=== PATIENT | female | born 1990 | race Caucasian/White ===

== ENCOUNTER 2016-05-05 13:05 | Emergency (ER) | payer MEDICAID, OTHER ==
[~2016-05-05] VITALS: Ht 160 cm; Wt 109.0 kg
[~2016-05-05 13:05] MED LIST: AGM875T PO; AMOX1TAB11 PO; BIRTH CONTROL PO; BREA1EAC5 MC; DCS100C PO; HYDR-3720 PO; HYDR1TAB8 OP; IBP800T PO; LNZ600T PO; PREN1TAB71 PO; PROM25TA14 PO; RNT150T PO; TRAM50TA2 PO
--- NOTE | 2016-05-05 14:10 | ED General ---
General Chief Complaint: Chest Wall/Rib Pain Stated Complaint: RUNNY NOSE/COUGH/SORE THROAT Nursing Triage Note: PT STATES SHE HAS BEEN COUGHING A LOT AND HAS UPPER CHEST PAIN FROM COUGHING, HAS HAD CHILLS ON OCCATION, PRODUCTIVE COUGH, FOR ABOUT 2 WEEKS. Nursing Sepsis Screen: No Definite Risk Source of Information: Patient Exam Limitations: No Limitations History of Present Illness Time Seen by Provider: 14:08 Initial Comments 25-year-old female patient presents to the emergency department complaints of 2 weeks onset of cough, chills, clear sputum. Denies improvement. Denies contacting her family practitioner for the symptoms. Timing/Duration: Getting Worse, Other (2 wks) Modifying Factors: worse with Other (worse with coughing) Allergies and Home Medications Allergies Coded Allergies: No Known Drug Allergies (Unverified , 12/28/09) Home Medications Albuterol Sulfate 6.7 Gm Hfa.aer.ad #1 2 PUFF IH Q4H PRN PRN SHORTNESS OF BREATH Prescribed by: COLE GRANT on 05/05/16 1436 Doxycycline Hyclate 100 Mg Capsule #14 100 MG PO BID Prescribed by: COLE GRANT on 05/05/16 1436 Prednisone 20 Mg Tab #10 40 MG PO DAILY Prescribed by: COLE GRANT on 05/05/16 1436 Constitutional: chillsNo dizziness, No fever, malaise EENTM: ear pain nose congestion throat pain Respiratory: see HPI Cardiovascular: no symptoms reported Gastrointestinal: no symptoms reported Genitourinary: no symptoms reported Musculoskeletal: no symptoms reported Skin: no symptoms reported Psychiatric/Neurological: No Symptoms Reported All Other Systems Reviewed Negative Unless Noted: Yes (Negative excepted noted.) Past Qizbrtq-Ivanol-Gzvruy Hx Patient Social History Alcohol Use: Rarely Uses Recreational Drug Use: No Smoking Status: Current Everyday Smoker Type Used: Cigarettes Former Smoker/When Quit: Jan 31, 2013 Recent Foreign Travel: No Contact w/Someone Who Travel: No Recent Infectious Disease Expo: No Recent Hopitalizations: No Physical Abuse Screen: No Sexual Abuse: No Immunizations Up To Date Tetanus Booster (TDap): Less than 5yrs Date of Influenza Vaccine: Mar 19, 2014 Surgeries HX Surgeries: Yes (BILAT KNEE ) Surgeries: Bladder Surgery, Section, Orthopedic Respiratory Hx Respiratory Disorders: No Cardiovascular Hx Cardiac Disorders: No Neurological Hx Neurological Disorders: No Reproductive System : No (HAS NOT HAS A PERIOD SINCE ) Hx Reproductive Disorders: No Female Reproductive Disorders: Denies Genitourinary Hx Genitourinary Disorders: No Gastrointestinal Hx Gastrointestinal Disorders: No Musculoskeletal Hx Musculoskeletal Disorders: No Endocrine Hx Endocrine Disorders: No HEENT HX ENT Disorders: No Cancer Hx Cancer: No Psychosocial Hx Psychiatric Problems: No Integumentary HX Skin/Integumentary Disorder: No Blood Transfusions Hx Blood Disorders: No Adverse Reaction to a Blood Tr: No Reviewed Nursing Assessment Reviewed/Agree w Nursing PMH: Yes Family Medical History Significant Family History: No Pertinent Family Hx Family Medial History: Family history: Cardiovascular disease MATERNAL GRANDMOTHER Family history: Hypertension MATERNAL GRANDMOTHER Infertile Tuberculosis 03 MOTHER Physical Exam Vital Signs Vital Sign - Last 12Hours 05/05/16 13:23 Temp 97.1 Pulse 90 Resp 20 B/P 119/73 Pulse Ox 97 O2 Delivery Room Air Capillary Refill : Less Than 3 Seconds General Appearance: No Apparent Distress WD/WN HEENT: PERRL/EOMI TMs Normal Pharyngeal Erythema Neck: Full Range of Motion Normal Inspection Non Tender Supple Respiratory: No Accessory Muscle Use No Respiratory Distress Wheezing (left faint expiratory wheezing. Coarse breath sounds bilaterally.) Cardiovascular: Regular Rate, Rhythm No Murmur Gastrointestinal: Non Tender SoftNo Distended Back: Normal Inspection Extremity: Normal Capillary Refill Neurologic/Psychiatric: Alert Oriented x3 Normal Mood/Affect Skin: Normal Color Warm/Dry Progress/Results/Core Measures Results/Orders My Orders Orders-COLE GRANT Chest Pa/Lat (2 View) (05/05/16 13:53) Vital Signs/I&O Vital Sign - Last 12Hours 05/05/16 05/05/16 13:23 13:33 Temp 97.1 Pulse 90 Resp 20 B/P 119/73 Pulse Ox 97 O2 Delivery Room Air Room Air Blood Pressure Mean: 88 Diagnostic Imaging Diagonstic Imaging: Xray Plain Films/CT/US/NM/MRI: chest Comments Indication: Cough and dyspnea. Discussion: Two views of the chest were obtained , comparison 09/04/2015. Patchy opacities are noted within the left mid lung, concerning for pneumonia. Normal heart size. No pleural fluid or pneumothorax. No acute osseous abnormality. Impression: 1. Patchy opacities within the left mid lung, concerning for pneumonia. Dictated on workstation # [id number] Reviewed: Reviewed by Me (radiology report reviewed by me) Departure Communication Progress Notes Diagnostic findings discussed with the patient. Proceed with discharge to home with doxycycline, albuterol, and prednisone. Impression Impression: Primary Impression: Pneumonia Qualified Code: J18.9 - Pneumonia, unspecified organism Disposition: HOME, SELF-CARE Condition: Improved Departure-Patient Inst. Decision time for Depature: 14:35 Referrals: NO,LOCAL PHYSICIAN (PCP/Family) Primary Care Physician Patient Instructions: Community-Acquired Pneumonia, Adult (DC) Add. Discharge Instructions: All discharge instructions reviewed with patient and/or family. Voiced understanding. Medications as instructed. Tylenol and ibuprofen over-the- counter for pain or fever. Cool Humidifier. Whkt-opu-dyjlpaa cough suppressants, and histamines, and/or decongestants if needed. Return to the emergency department for worsened symptoms or any other concerns. Follow-up with your family practitioner for recheck as an outpatient and repeat chest x- ray in the next 3-5 days. Scripts Albuterol Sulfate (Proventil Hfa)6.7 Gm Hfa.aer.ad2 Puff IH Q4H PRN SHORTNESS OF BREATH #1 EA Ref 0 Prov:COLE GRANT 05/05/16 Prednisone 20 Mg Tab40 Mg PO DAILY #10 TAB Ref 0 Prov:COLE GRANT 05/05/16 Doxycycline Hyclate 100 Mg [id number] Mg PO BID #14 CAP Ref 0 Prov:COLE GRANT 05/05/16 Work/School Note: Local [employer] COLE GRANT May 05, 2016 14:10
--- NOTE | 2016-05-05 14:18 | Diagnostic Imaging Report ---
Indication: Cough and dyspnea. Discussion: Two views of the chest were obtained, comparison 09/04/2015. Patchy opacities are noted within the left mid lung, concerning for pneumonia. Normal heart size. No pleural fluid or pneumothorax. No acute osseous abnormality. Impression: 1. Patchy opacities within the left mid lung, concerning for pneumonia. Dictated by: Dictated on workstation # [id number]
[2016-05-05] MEDS ORDERED: RT-ALBUINH IH (14:36)
[2016-05-05] MEDS ORDERED: DOXY100C2 PO (14:36)
[2016-05-05] MEDS ORDERED: PRD20T PO (14:36)
[2016-05-05 14:50] VITALS: BP 119/73
== END 2016-05-05 14:49 | disposition home or self-care (01) ==
LOC: EDUNIT# 13:05 → ER 13:07
DX: J18.9 Pneumonia, unspecified organism (principal); F17.210 Nicotine dependence, cigarettes, uncomplicated
CPT/HCPCS: 71020

== ENCOUNTER 2020-06-21 07:36 | Emergency (ER) | payer MEDICAID ==
[~2020-06-21] VITALS: Ht 160 cm; Wt 113.0 kg
[~2020-06-21 07:36] MED LIST changes: +DOXY100C2 PO; +PRD20T PO; +RT-ALBUINH IH
--- NOTE | 2020-06-21 07:55 | ED Abdominal Pain ---
General Chief Complaint: Substance Abuse Stated Complaint: ETOH INTOX Nursing Triage Note: ARRIVED VIA AMB BY EMS FROM HOME. STATES SHE HAS X4 MIXED YURY AND COKES AND X1 BEER LAST NIGHT. HAS BEEN VOMITING AND FEELING LIKE SHE WAS GOING TO PASS OUT. Sepsis Screen: No Definite Risk Source of Information: Patient, EMS Exam Limitations: No Limitations History of Present Illness Date Seen by Provider: Jun 21, 2020 Time Seen by Provider: 07:40 Initial Comments Patient is a 30-year-old female who presents to the emergency department today with a chief complaint of abdominal discomfort, nausea vomiting and a little diarrhea. Patient states that she went out to the bar last night and had 4 mixed drinks and a beer. Patient states that she was drinking "Yury and Coke". She states that she started vomiting last night and she has vomited too many times to count. Patient denies any black or bloody emesis. Patient denies any bloody stool or black stool. Patient states that she has felt like she is going to pass out secondary to the nausea and vomiting. Patient denies any urinary complaints. Patient states that she has not taken anything for the nausea and vomiting. Patient states that she drinks alcohol maybe twice a month. Patient states she has not been able to hold anything down throughout the night. She states her last menstrual period was about 2 months ago when she has a history of polycystic ovarian syndrome. She also states that she is being worked up for diabetes through [facility]. She is not on any medications for diabetes however. Patient denies any recent fevers, chills, productive cough or other complaints of illness. All other review of systems reviewed and negative except as stated above. Timing/Duration: 4-6 Hours Severity/Quality: Severe Location: Epigastric Radiation: No Radiation Activities at Onset: None Associated Symptoms: Nausea/Vomiting Allergies and Home Medications Allergies Coded Allergies: No Known Drug Allergies (Unverified , 12/28/09) Patient Home Medication List Home Medication List Reviewed: Yes Review of Systems Review of Systems Constitutional: see HPI EENTM: No Symptoms Reported Respiratory: No Symptoms Reported Cardiovascular: No Symptoms Reported Gastrointestinal: Abdominal Pain, Diarrhea, Nausea, Vomiting Genitourinary: No Symptoms Reported Musculoskeletal: no symptoms reported Skin: no symptoms reported Psychiatric/Neurological: No Symptoms Reported All Other Systems Reviewed Negative Unless Noted: Yes Past Lbpwzok-Avdkkt-Vlxlxu Hx Patient Social History Alcohol Use: Occasionally Uses Number of Drinks Today: AA Alcohol Beverage of Choice: Beer, Whiskey Type Used: Cigarettes Recent Infectious Disease Expo: No Recent Hopitalizations: No Immunizations Up To Date Tetanus Booster (TDap): Less than 5yrs Date of Influenza Vaccine: Mar 19, 2014 Past Medical History Surgeries: Yes (BILAT KNEE ) Bladder Surgery, Section, Orthopedic Respiratory: No Cardiac: No Neurological: No Reproductive Disorders: No Female Reproductive Disorders: Denies Gastrointestinal: No Musculoskeletal: No Endocrine: No Cancer: No Psychosocial: No Integumentary: No Blood Disorders: No Adverse Reaction/Blood Tranf: No Family Medical History Family history: Cardiovascular disease MATERNAL GRANDMOTHER Family history: Hypertension MATERNAL GRANDMOTHER Infertile Tuberculosis 03 MOTHER No Pertinent Family Hx Physical Exam Vital Signs Vital Signs - First Documented 06/21/20 07:36 Temp 35.1 Pulse 103 Resp 16 B/P (MAP) 136/78 (97) Pulse Ox 94 O2 Delivery Room Air Capillary Refill : Less Than 3 Seconds Height/Weight/BMI Height: 5'3" Weight: 240lbs. 5.0oz. 109.739162qo; 44.00 BMI Method:Stated General Appearance: WD/WN, moderate distress (Actively vomiting on arrival to the emergency department) HEENT: PERRL/EOMI Neck: full range of motion Respiratory: lungs clear, normal breath sounds, no respiratory distress, no accessory muscle use Cardiovascular: regular rate, rhythm Gastrointestinal: soft, guarding (Epigastric discomfort on palpation with voluntary guarding), tenderness (Tender to palpation in the right upper quadrant and epigastrium) Extremities: non-tender, normal inspection, no pedal edema, no calf tenderness, normal capillary refill Neurologic/Psychiatric: alert, normal mood/affect, oriented x 3 Skin: normal color, warm/dry Progress/Results/Core Measures Results/Orders Lab Results Laboratory Tests Test 06/21/20 07:58 Range/Units White Blood Count 8.2 4.3-11.0 10^3/uL Red Blood Count 4.61 3.80-5.11 10^6/uL Hemoglobin 13.1 11.5-16.0 g/dL Hematocrit 39 35-52 % Mean Corpuscular Volume 86 80-99 fL Mean Corpuscular Hemoglobin 28 25-34 pg Mean Corpuscular Hemoglobin Concent 33 32-36 g/dL Red Cell Distribution Width 13.4 10.0-14.5 % Platelet Count 235 130-400 10^3/uL Mean Platelet Volume 11.8 9.0-12.2 fL Immature Granulocyte % (Auto) 0 % Neutrophils (%) (Auto) 57 42-75 % Lymphocytes (%) (Auto) 34 12-44 % Monocytes (%) (Auto) 7 0-12 % Eosinophils (%) (Auto) 1 0-10 % Basophils (%) (Auto) 1 0-10 % Neutrophils # (Auto) 4.7 1.8-7.8 10^3/uL Lymphocytes # (Auto) 2.8 1.0-4.0 10^3/uL Monocytes # (Auto) 0.6 0.0-1.0 10^3/uL Eosinophils # (Auto) 0.1 0.0-0.3 10^3/uL Basophils # (Auto) 0.1 0.0-0.1 10^3/uL Immature Granulocyte # (Auto) 0.0 0.0-0.1 10^3/uL Sodium Level 141 135-145 MMOL/L Potassium Level 3.5 L 3.6-5.0 MMOL/L Chloride Level 105 98-107 MMOL/L Carbon Dioxide Level 23 21-32 MMOL/L Anion Gap 13 5-14 MMOL/L Blood Urea Nitrogen 11 7-18 MG/DL Creatinine 0.80 0.60-1.30 MG/DL Estimat Glomerular Filtration Rate > 60 BUN/Creatinine Ratio 14 Glucose Level 135 H 70-105 MG/DL Calcium Level 8.9 8.5-10.1 MG/DL Corrected Calcium 8.6 8.5-10.1 MG/DL Total Bilirubin 0.6 0.1-1.0 MG/DL Aspartate Amino Transf (AST/SGOT) 17 5-34 U/L Alanine Aminotransferase (ALT/SGPT) 32 0-55 U/L Alkaline Phosphatase 66 40-136 U/L Total Protein 7.6 6.4-8.2 GM/DL Albumin 4.4 3.2-4.5 GM/DL Lipase 20 8-78 U/L Serum Test, Qualitative NEGATIVE NEGATIVE My Orders Orders - RENE CASTELLANO MD Ed Iv/Invasive Line Start (06/21/20 07:49) Cbc With Automated Diff (06/21/20 07:49) Comprehensive Metabolic Panel (06/21/20 07:49) Lipase (06/21/20 07:49) Hcg,Qualitative Serum (06/21/20 07:49) Ns Iv 1000 Ml (Sodium Chloride 0.9%) (06/21/20 08:00) Promethazine Injection (Phenergan Injec (06/21/20 08:00) Diphenhydramine Injection (Benadryl Inje (06/21/20 09:15) Medications Given in ED Current Medications Medications Dose Ordered Sig/Osei Route Start Time Stop Time Status Last Admin Dose Admin Diphenhydramine HCl 25 mg ONCE ONCE IVP 06/21/20 09:15 06/21/20 09:16 DC 06/21/20 09:07 25 MG Promethazine HCl 25 mg ONCE ONCE IVP 06/21/20 08:00 06/21/20 08:01 DC 06/21/20 08:03 25 MG Vital Signs/I&O 06/21/20 07:36 Temp 35.1 Pulse 103 Resp 16 B/P (MAP) 136/78 (97) Pulse Ox 94 O2 Delivery Room Air Blood Pressure Mean: 97 Progress Progress Note : Time: 07:55 Progress Note 30-year-old female presents to the emergency department with a chief complaint of nausea and vomiting after a night of drinking alcoholic beverages last night. Evaluation today includes a physical examination, CBC, Chem-12, lipase and serum test. Patient is treated in the emergency department with a liter of IV fluids and 25 mg of Zofran. Patient disposition to be determined after laboratory studies have been evaluated. 0842 Patient reevaluated. She has had approximately half liter of fluids with Phenergan. She is not feeling much better just yet. Labs have been reviewed and are all within normal limits except for her blood sugar which is mildly elevated at 135. Patient has no clinical or objective findings to warrant further investigation here in the emergency department. Her exam is benign. Her vital signs are stable. Will reevaluate patient after her fluids are com plete. 0942 Reevaluated patient. She is feeling better. No further vomiting. The Benadryl seems to have augmented the Phenergan and alleviated her symptoms. Patient is counseled on drinking less alcoholic beverages. She verbalizes understanding. She is comfortable with discharge to home. We will send her home with a prescription for some Phenergan. All questions were sought and answered. Patient is stable for discharge Departure Impression Primary Impression: Alcoholic gastritis Qualified Codes: K29.20 - Alcoholic gastritis without bleeding Disposition: HOME, SELF-CARE Condition: Stable Departure-Patient Inst. Decision time for Depature: 09:43 Referrals: NO,LOCAL PHYSICIAN (PCP/Family) Primary Care Physician Patient Instructions: Gastritis (DC), Nausea and Vomiting, Adult Add. Discharge Instructions: Drink plenty of fluids to stay well-hydrated. Follow a clear liquid diet today until your stomach is calm down and you can tolerate food. I have given you a prescription for some Phenergan you can take 1 every 6 hours as needed for nausea and vomiting. Return to the emergency room for any worsening symptoms, especially associated with fever, abdominal pain or any other emergent concerns Scripts Promethazine HCl (Promethazine Tablet) 25 Mg Tablet 25 MG PO Q6H PRN for NAUSEA/VOMITING, #15 TAB Prov: RENE CASTELLANO MD 06/21/20 RENE CASTELLANO MD Jun 21, 2020 07:55
[2020-06-21] MEDS ORDERED: NS IV 1000 ML 1,000 ML IV SCH (08:00)
[2020-06-21] MEDS ORDERED: PROMETHAZINE INJ 25 MG/ML (PHENERGAN) AMP IVP ONE (08:00)
[2020-06-21 08:08] LABS: BASOPHILS # (AUTO) 0.1 10^3/uL (0.0-0.1); BASOPHILS % (AUTO) 1 % (0-10); EOSINOPHILS # (AUTO) 0.1 10^3/uL (0.0-0.3); EOSINOPHILS % (AUTO) 1 % (0-10); HEMATOCRIT 39 % (35-52); HEMOGLOBIN 13.1 g/dL (11.5-16.0); LYMPHOCYTES # (AUTO) 2.8 10^3/uL (1.0-4.0); LYMPHOCYTES % (AUTO) 34 % (12-44); MEAN CORPUSCULAR HEMOGLOBIN 28 pg (25-34); MEAN CORPUSCULAR HGB CONC 33 g/dL (32-36); MEAN CORPUSCULAR VOLUME 86 fL (80-99); MEAN PLATELET VOLUME 11.8 fL (9.0-12.2); MONOCYTES # (AUTO) 0.6 10^3/uL (0.0-1.0); MONOCYTES % (AUTO) 7 % (0-12); NEUTROPHILS # (AUTO) 4.7 10^3/uL (1.8-7.8); NEUTROPHILS % (AUTO) 57 % (42-75); PLATELET COUNT 235 10^3/uL (130-400); WHITE BLOOD COUNT 8.2 10^3/uL (4.3-11.0)
[2020-06-21 08:20] LABS: ALBUMIN 4.4 GM/DL (3.2-4.5); CHLORIDE 105 MMOL/L (98-107); POTASSIUM 3.5 MMOL/L (3.6-5.0); SODIUM 141 MMOL/L (135-145)
[2020-06-21 08:22] LABS: CALCIUM 8.9 MG/DL (8.5-10.1)
[2020-06-21 08:23] LABS: GLUCOSE 135 MG/DL (70-105); TOTAL PROTEIN 7.6 GM/DL (6.4-8.2)
[2020-06-21 08:24] LABS: CARBON DIOXIDE 23 MMOL/L (21-32)
[2020-06-21 08:25] LABS: BILIRUBIN,TOTAL 0.6 MG/DL (0.1-1.0)
[2020-06-21 08:26] LABS: ALKALINE PHOSPHATASE 66 U/L (40-136); GFR ESTIMATED > 60
[2020-06-21 08:27] LABS: BUN/CREATININE RATIO 14
[2020-06-21 08:29] LABS: ALANINE AMINOTRANSFERASE 32 U/L (0-55)
[2020-06-21 08:30] LABS: LIPASE 20 U/L (8-78)
[2020-06-21] MEDS ORDERED: diphenhydrAMINE 50 MG/ML INJ (BENADRYL) IVP ONE (09:15)
[2020-06-21] MEDS ORDERED: PROM25TA14 PO (09:44)
[2020-06-21 09:53] VITALS: BP 103/57
== END 2020-06-21 09:53 | disposition home or self-care (01) ==
LOC: EDUNIT# 07:36 → ER 07:38
DX: K29.20 Alcoholic gastritis without bleeding (principal); Z82.49 Family history of ischemic heart disease and other diseases of the circulatory system
CPT/HCPCS: 36415; 80053; 83690; 84703; 85025

== ENCOUNTER 2021-10-12 12:49 | Emergency (ER) | payer MEDICAID ==
[~2021-10-12] VITALS: Ht 160 cm; Wt 118.3 kg
[~2021-10-12 12:49] MED LIST changes: -DOXY100C2 PO; +DOXY100C5 PO
--- NOTE | 2021-10-12 13:09 | ED Fall/Injury ---
General Chief Complaint: Substance Abuse Stated Complaint: [place],VOMITING,DEHYDRATED,FALL BILAT KNEE PAIN Source: patient Exam Limitations: no limitations History of Present Illness Date Seen by Provider: Oct 12, 2021 Time Seen by Provider: 13:06 Initial Comments This is a 31-year-old female who presents to the emergency room for evaluation of nausea, vomiting and left knee pain. She states that she went out drinking last night and she fell onto a stair and injured her left knee. Her tetanus is not up-to-date. She also states that since last night she has had increased nausea and vomiting and has thrown up at least 4 times this morning. She states that she does not normally drink. Her overall pain is currently a dull 6 out of 10. Loss of Consciousness: no loss of consciousness Allergies and Home Medications Allergies Coded Allergies: No Known Drug Allergies (Unverified , 12/28/09) Patient Home Medication List Home Medication List Reviewed: Yes Promethazine HCl (Promethazine Tablet) 25 Mg Tablet, 25 MG PO Q6H PRN for NAUSEA/VOMITING Prescribed by: RENE CASTELLANO on 06/21/20 0944 Review of Systems Review of Systems Constitutional: no symptoms reported Eyes: No Symptoms Reported Ears, Nose, Mouth, Throat: no symptoms reported Respiratory: no symptoms reported Cardiovascular: no symptoms reported Gastrointestinal: nausea, vomiting Genitourinary: no symptoms reported : No Musculoskeletal: other (Left knee abrasion and pain) Skin: other (Abrasions) Psychiatric/Neurological: No Symptoms Reported Past Dxhabjb-Coraqf-Btizyx Hx Patient Social History Tobacco Use?: Yes Tobacco type used: Cigarettes Immunizations Up To Date Tetanus Booster (TDap): Less than 5yrs Past Medical History Surgeries: Yes (BILAT KNEE ) Bladder Surgery, Section, Orthopedic Respiratory: No Cardiac: No Neurological: No Reproductive Disorders: No Female Reproductive Disorders: Polycystic Ovarian Dis Gastrointestinal: No Musculoskeletal: No Endocrine: Yes (DR IS WATCHING HER BLOOD SUGARS) Cancer: No Psychosocial: No Integumentary: No Blood Disorders: No Adverse Reaction/Blood Tranf: No Family Medical History Family history: Cardiovascular disease MATERNAL GRANDMOTHER Family history: Hypertension MATERNAL GRANDMOTHER Infertile Tuberculosis 03 MOTHER No Pertinent Family Hx Physical Exam Vital Signs Vital Signs - First Documented 10/12/21 13:05 Temp 36.8 Pulse 71 Resp 18 B/P (MAP) 117/67 (84) Pulse Ox 99 O2 Delivery Room Air Capillary Refill : Height, Weight, BMI Height: 5'3" Weight: 240lbs. 5.0oz. 109.762968dq; 44.00 BMI Method:Stated General Appearance: WD/WN, no apparent distress HEENT: PERRL/EOMI, normal ENT inspection, pharynx normal Neck: non-tender, full range of motion, supple Cardiovascular: tachycardia Respiratory: chest non-tender, lungs clear, normal breath sounds Gastrointestinal: normal bowel sounds, non tender Back: normal inspection Extremities: other (Superficial abrasions to the knees bilaterally) Neurologic/Psychiatric: top executive II-XII nml as tested Skin: normal color Lymphatic: no adenopathy Progress/Results/Core Measures Results/Orders My Orders Orders - DEREK REESE Tetanus/Diphtheria Inj (Adult) (Tenivac (10/12/21 13:15) Ondansetron Injection (Zofran Injectio (10/12/21 13:15) Ns Iv 1000 Ml (Sodium Chloride 0.9%) (10/12/21 13:15) Knee, Left, 3 Views (10/12/21 13:04) Iv/Invasive Line Insertion .IV start (10/12/21 13:29) Medications Given in ED Current Medications Medications Dose Ordered Sig/Osei Route Start Time Stop Time Status Last Admin Dose Admin Ondansetron HCl 4 mg ONCE ONCE IVP 10/12/21 13:15 10/12/21 13:19 DC 10/12/21 13:26 4 MG Sodium Chloride 1,000 ml @ 0 mls/hr Q0M ONCE IV 10/12/21 13:15 10/12/21 13:19 DC 10/12/21 13:25 999 MLS/HR Tetanus/ Diphtheria Toxoids 0.5 ml ONCE ONCE IM 10/12/21 13:15 10/12/21 13:19 DC 10/12/21 13:26 0.5 ML Vital Signs/I&O 10/12/21 13:05 Temp 36.8 Pulse 71 Resp 18 B/P (MAP) 117/67 (84) Pulse Ox 99 O2 Delivery Room Air Departure Impression Primary Impression: Nausea and vomiting Additional Impressions: Right ankle sprain Abrasions of multiple sites Left knee sprain Disposition: 01 HOME, SELF-CARE Condition: Improved Departure-Patient Inst. Decision time for Depature: 13:58 Referrals: MARYAM CHRISTINA MD (PCP/Family) Primary Care Physician Patient Instructions: ALCOHOL AND SUBSTANCE ABUSE, Skin Abrasions, Sprain (DC) Add. Discharge Instructions: Please abstain from alcohol use. Use soap and water to keep your wounds clean. Follow-up closely with your primary care doctor All discharge instructions reviewed with patient and/or family. Voiced understanding. Scripts Ondansetron (Ondansetron Odt) 4 Mg Tab.rapdis 4 MG PO TID PRN for NAUSEA/VOMITING-1ST LINE for 3 Days, #14 TAB Prov: DEREK REESE 10/12/21 DEREK REESE Oct 12, 2021 13:08
[2021-10-12] MEDS ORDERED: TETANUS & DIPHTHERIA TOX,ADULT 0.5 ML (TENIVAC) IM ONE (13:15)
[2021-10-12] MEDS ORDERED: ONDANSETRON 4 MG/2 ML (SDV) Z0FRAN IVP ONE (13:15)
[2021-10-12] MEDS ORDERED: NS IV 1000 ML 1,000 ML IV ONE (13:15)
--- NOTE | 2021-10-12 13:49 | Diagnostic Imaging Report ---
EXAMINATION: Left knee radiographs, 3 views. COMPARISON: Knee radiographs September 04, 2015. HISTORY: 31-year-old female, fall. Left knee pain. FINDINGS: There is a well-corticated ossification adjacent to the anterior aspect of the proximal tibia consistent with long-standing chronic etiology. This may reflect sequela of remote prior injury. There is no identified acute fracture. There is no knee joint effusion. The joint spaces are well-preserved. IMPRESSION: No identified acute bony abnormality of the left knee. Dictated by: Dictated on workstation # [id number]
[2021-10-12] MEDS ORDERED: ONDA4TAB11 PO (13:59)
[2021-10-12 14:22] VITALS: BP 115/60
== END 2021-10-12 14:23 | disposition home or self-care (01) ==
LOC: EDUNIT# 12:49 → ER 12:51
DX: S93.402A Sprain of unspecified ligament of left ankle, initial encounter (principal); S83.92XA Sprain of unspecified site of left knee, initial encounter; R11.2 Nausea with vomiting, unspecified; F17.210 Nicotine dependence, cigarettes, uncomplicated; Z23 Encounter for immunization; W10.9XXA Fall (on) (from) unspecified stairs and steps, initial encounter
CPT/HCPCS: 73562; 90714

== ENCOUNTER 2022-03-01 11:54 | Emergency (ER) | payer MEDICAID ==
[~2022-03-01] VITALS: Ht 160 cm; Wt 117.9 kg
[~2022-03-01 11:54] MED LIST changes: +ONDA4TAB11 PO
--- NOTE | 2022-03-01 12:23 | ED General ---
General Chief Complaint: Allergic Reaction Stated Complaint: FACIAL SWELLING/HIVES Source of Information: Patient Exam Limitations: No Limitations History of Present Illness Date Seen by Provider: Mar 01, 2022 Time Seen by Provider: 12:15 Initial Comments Patient is a 31-year-old female who presents to the emergency department with co radhaerns for possible allergic reaction that began yesterday and worsened today. Patient states she was recently put on a course of steroids due to some existing right ulnar tunnel issues. She states shortly after the steroids were completed the symptoms began. She states she has been having lip swelling, facial swelling, mild subjective difficulty breathing, and an itchy rash on her bilateral upper extremities. She states she took some Benadryl yesterday but is taken nothing today. She states she had some nausea and vomiting on Wednesday but has had none since. She denies any known allergies. She denies any history of similar symptoms. Allergies and Home Medications Allergies Coded Allergies: No Known Drug Allergies (Unverified , 12/28/09) Patient Home Medication List Home Medication List Reviewed: Yes Epinephrine (Epipen 2-Vipul) 0.3 Mg/0.3 Ml Auto.injct, 0.3 MG IJ NEEDED Prescribed by: Regan Whitman on 03/01/22 1458 Levocetirizine Dihydrochloride (Xyzal) 5 Mg Tablet, 5 MG PO BID Prescribed by: Regan Whitman on 03/01/22 1457 Ondansetron (Ondansetron Odt) 4 Mg Tab.rapdis, 4 MG PO TID PRN for NAUSEA/VOMITING-1ST LINE Prescribed by: MEHNAZ GALLOWAY on 10/12/21 1359 Promethazine HCl (Promethazine Tablet) 25 Mg Tablet, 25 MG PO Q6H PRN for NAUSEA/VOMITING Prescribed by: RENE CASTELLANO on 06/21/20 0944 Review of Systems Review of Systems Constitutional: see HPI EENTM: see HPI Respiratory: see HPI Cardiovascular: no symptoms reported Gastrointestinal: see HPI Genitourinary: no symptoms reported Musculoskeletal: no symptoms reported Skin: see HPI Psychiatric/Neurological: No Symptoms Reported Past Tiajnsl-Gyuqry-Zuqwsc Hx Immunizations Up To Date Tetanus Booster (TDap): Less than 5yrs Past Medical History Surgeries: Yes (BILAT KNEE ) Bladder Surgery, Section, Orthopedic Respiratory: No Cardiac: No Neurological: No Reproductive Disorders: No Female Reproductive Disorders: Polycystic Ovarian Dis Gastrointestinal: No Musculoskeletal: No Endocrine: Yes (DR IS WATCHING HER BLOOD SUGARS) Cancer: No Psychosocial: No Integumentary: No Blood Disorders: No Adverse Reaction/Blood Tranf: No Family Medical History Family history: Cardiovascular disease MATERNAL GRANDMOTHER Family history: Hypertension MATERNAL GRANDMOTHER Infertile Tuberculosis 03 MOTHER No Pertinent Family Hx Physical Exam Vital Signs Vital Signs - First Documented 03/01/22 12:16 Temp 36.9 Pulse 90 Resp 20 B/P (MAP) 161/95 (117) Pulse Ox 98 O2 Delivery Room Air Capillary Refill : Height, Weight, BMI Height: 5'3" Weight: 240lbs. 5.0oz. [id number]; 46.00 BMI Method:Stated General Appearance: No Apparent Distress, WD/WN HEENT: PERRL/EOMI, TMs Normal, Normal ENT Inspection, Pharynx Normal Neck: Full Range of Motion, Normal Inspection, Non Tender, Supple Respiratory: Chest Non Tender, Lungs Clear, Normal Breath Sounds, No Accessory Muscle Use, No Respiratory Distress Cardiovascular: Regular Rate, Rhythm Back: Normal Inspection, No Vertebral Tenderness Extremity: Normal Capillary Refill, Normal Inspection, Normal Range of Motion Neurologic/Psychiatric: Alert, Oriented x3, No Motor/Sensory Deficits, Normal Mood/Affect Skin: Warm/Dry Comments Urticarial rash noted to the bilateral upper extremities; moderate swelling noted to the lips and bilateral periorbital tissues without erythema Progress/Results/Core Measures Suspected Sepsis SIRS Temperature: Pulse: Respiratory Rate: Laboratory Tests 03/01/22 12:35: White Blood Count 16.6H Blood Pressure / Mean: Laboratory Tests 03/01/22 12:35: Creatinine 0.89, Platelet Count 280, Total Bilirubin 0.8 Results/Orders Lab Results Laboratory Tests Test 03/01/22 12:35 03/01/22 13:09 Range/Units White Blood Count 16.6 H 4.3-11.0 10^3/uL Red Blood Count 5.12 H 3.80-5.11 10^6/uL Hemoglobin 14.6 11.5-16.0 g/dL Hematocrit 43 35-52 % Mean Corpuscular Volume 84 80-99 fL Mean Corpuscular Hemoglobin 29 25-34 pg Mean Corpuscular Hemoglobin Concent 34 32-36 g/dL Red Cell Distribution Width 12.6 10.0-14.5 % Platelet Count 280 130-400 10^3/uL Mean Platelet Volume 11.3 9.0-12.2 fL Immature Granulocyte % (Auto) 0 % Neutrophils (%) (Auto) 72 42-75 % Lymphocytes (%) (Auto) 21 12-44 % Monocytes (%) (Auto) 6 0-12 % Eosinophils (%) (Auto) 1 0-10 % Basophils (%) (Auto) 0 0-10 % Neutrophils # (Auto) 12.0 H 1.8-7.8 10^3/uL Lymphocytes # (Auto) 3.5 1.0-4.0 10^3/uL Monocytes # (Auto) 0.9 0.0-1.0 10^3/uL Eosinophils # (Auto) 0.1 0.0-0.3 10^3/uL Basophils # (Auto) 0.1 0.0-0.1 10^3/uL Immature Granulocyte # (Auto) 0.1 0.0-0.1 10^3/uL Neutrophils % (Manual) 70 % Lymphocytes % (Manual) 24 % Monocytes % (Manual) 4 % Eosinophils % (Manual) 2 % Basophils % (Manual) 0 % Band Neutrophils 0 % Blood Morphology Comment NORMAL Sodium Level 137 135-145 MMOL/L Potassium Level 3.6 3.6-5.0 MMOL/L Chloride Level 105 98-107 MMOL/L Carbon Dioxide Level 19 L 21-32 MMOL/L Anion Gap 13 5-14 MMOL/L Blood Urea Nitrogen 15 7-18 MG/DL Creatinine 0.89 0.60-1.30 MG/DL Estimat Glomerular Filtration Rate 90 BUN/Creatinine Ratio 17 Glucose Level 123 H 70-105 MG/DL Calcium Level 9.3 8.5-10.1 MG/DL Corrected Calcium 9.0 8.5-10.1 MG/DL Total Bilirubin 0.8 0.1-1.0 MG/DL Aspartate Amino Transf (AST/SGOT) 19 5-34 U/L Alanine Aminotransferase (ALT/SGPT) 30 0-55 U/L Alkaline Phosphatase 56 40-136 U/L Total Protein 7.6 6.4-8.2 GM/DL Albumin 4.4 3.2-4.5 GM/DL Urine Test NEGATIVE NEGATIVE My Orders Orders - WHITMAN,REGAN QUALITY MANAGER Epinephrine 1 Mg Injection (Adrenalin I (03/01/22 12:30) Diphenhydramine Injection (Benadryl Inje (03/01/22 12:30) Famotidine Injection (Pepcid Injection) (03/01/22 12:30) Dexamethasone Injection (Decadron Injec (03/01/22 12:30) Iv/Invasive Line Insertion .IV INSERT (03/01/22 12:20) Cbc With Automated Diff (03/01/22 12:20) Comprehensive Metabolic Panel (03/01/22 12:20) Hcg,Qualitative Urine (03/01/22 12:24) Dexamethasone Injection (Decadron Injec (03/01/22 12:35) Dexamethasone Injection (Decadron Injec (03/01/22 12:39) Manual Differential (03/01/22 12:35) Medications Given in ED Current Medications Medications Dose Ordered Sig/Osei Route Start Time Stop Time Status Last Admin Dose Admin Dexamethasone Sodium Phosphate 8 mg ONCE ONCE IV 03/01/22 12:30 03/01/22 12:31 DC 03/01/22 12:40 8 MG Diphenhydramine HCl 25 mg ONCE ONCE IVP 03/01/22 12:30 03/01/22 12:31 DC 03/01/22 12:37 25 MG Epinephrine HCl 0.3 mg ONCE ONCE IM 03/01/22 12:30 03/01/22 12:31 DC 03/01/22 13:04 0.3 MG Famotidine 20 mg ONCE ONCE IVP 03/01/22 12:30 03/01/22 12:31 DC 03/01/22 12:37 20 MG Vital Signs/I&O 03/01/22 03/01/22 12:16 13:04 Temp 36.9 Pulse 90 79 Resp 20 B/P (MAP) 161/95 (117) 121/76 Pulse Ox 98 O2 Delivery Room Air Capillary Refill : Progress Note : Progress Note Patient is nontoxic and well-hydrated on exam. Vital signs are reassuring. Patient is not hypoxic or tachypneic on exam. No adventitious lung sounds or increased work of breathing noted. There is no stridor appreciated on exam. No drooling, trismus, or decreased range of motion of the neck. Patient does have an urticarial rash on her bilateral upper extremities. She does have some facial swelling around her lips and bilateral eyes. This is concerning for potential delayed anaphylaxis. Thus patient was given IM epinephrine as well as IV doses of Benadryl, Pepcid, and Decadron. Patient had significant improvement in the symptoms after the medications were given. Patient was educated that she needed to stay in the emergency department for observation for 3 hours after the administration of the epinephrine. She states she wants to go home and does not want to stay that long. I stated that we are unable to be 100% sure that her symptoms would not rebound once the epinephrine wears off unless we are able to observe her for the above-stated time. She persisted in her desire to go home. She was able to tolerate food and liquid oral intake without issue. Patient will be discharged home with the acknowledgment of the risk that the symptoms could rebound once the epinephrine is completely metabolized. She will be discharged home with a prescription for Xyzal and EpiPen. Instructions for indications for EpiPen use were discussed. Discussed importance of close follow-up with PCP. Return precautions for urgent symptomology discussed. Patient verbalized understanding. Departure Impression Primary Impression: Allergic reaction Qualified Codes: T78.40XA - Allergy, unspecified, initial encounter Disposition: HOME, SELF-CARE Condition: Improved Departure-Patient Inst. Decision time for Depature: 14:55 Referrals: MARYAM CHRISTINA MD (PCP/Family) Primary Care Physician Patient Instructions: Allergic Reaction ED Scripts Epinephrine (Epipen 2-Vipul) 0.3 Mg/0.3 Ml Auto.injct 0.3 MG IJ NEEDED, #2 ML Prov: REGAN WHITMAN APRN 03/01/22 Levocetirizine Dihydrochloride (Xyzal) 5 Mg Tablet 5 MG PO BID for 7 Days, #14 TAB 0 Refills Prov: REGAN WHITMAN APRN 03/01/22 REGAN WHITMAN APRN Mar 01, 2022 12:23
[2022-03-01] MEDS ORDERED: EPINEPHrine INJECTION 1 MG/ML AMP IM ONE (12:30)
[2022-03-01] MEDS ORDERED: diphenhydrAMINE 50 MG/ML INJ (BENADRYL) IVP ONE (12:30)
[2022-03-01] MEDS ORDERED: FAMOTIDINE 20MG/2ML IV (PEPCID) IVP ONE (12:30)
[2022-03-01 12:47] LABS: BASOPHILS # (AUTO) 0.1 10^3/uL (0.0-0.1); BASOPHILS % (AUTO) 0 % (0-10); EOSINOPHILS # (AUTO) 0.1 10^3/uL (0.0-0.3); EOSINOPHILS % (AUTO) 1 % (0-10); HEMATOCRIT 43 % (35-52); HEMOGLOBIN 14.6 g/dL (11.5-16.0); LYMPHOCYTES # (AUTO) 3.5 10^3/uL (1.0-4.0); LYMPHOCYTES % (AUTO) 21 % (12-44); MEAN CORPUSCULAR HEMOGLOBIN 29 pg (25-34); MEAN CORPUSCULAR HGB CONC 34 g/dL (32-36); MEAN CORPUSCULAR VOLUME 84 fL (80-99); MEAN PLATELET VOLUME 11.3 fL (9.0-12.2); MONOCYTES # (AUTO) 0.9 10^3/uL (0.0-1.0); MONOCYTES % (AUTO) 6 % (0-12); NEUTROPHILS % (AUTO) 72 % (42-75); PLATELET COUNT 280 10^3/uL (130-400); WHITE BLOOD COUNT 16.6 10^3/uL (4.3-11.0)
[2022-03-01 13:04] LABS: ALBUMIN 4.4 GM/DL (3.2-4.5)
[2022-03-01 13:05] LABS: POTASSIUM 3.6 MMOL/L (3.6-5.0)
[2022-03-01 13:06] LABS: CALCIUM 9.3 MG/DL (8.5-10.1)
[2022-03-01 13:07] LABS: TOTAL PROTEIN 7.6 GM/DL (6.4-8.2)
[2022-03-01 13:09] LABS: BILIRUBIN,TOTAL 0.8 MG/DL (0.1-1.0)
[2022-03-01 13:11] LABS: CREATININE SERUM 0.89 MG/DL (0.60-1.30)
[2022-03-01 13:26] LABS: BAND NEUTROPHILS 0 %; BASOPHILS % (MANUAL) 0 %; EOSINOPHILS % (MANUAL) 2 %; LYMPHOCYTES % (MANUAL) 24 %; MONOCYTES % (MANUAL) 4 %; NEUTROPHILS % (MANUAL) 70 %; RBC MORPH NORMAL
[2022-03-01] MEDS ORDERED: LEVO5TAB28 PO (14:57)
[2022-03-01] MEDS ORDERED: EPIN0.3P3 IJ (14:58)
[2022-03-01 15:16] VITALS: BP 136/83
[2022-03-02] MEDS ORDERED: EPIN0.3P3 IJ (08:35)
[2022-03-02] MEDS ORDERED: LEVO5TAB28 PO (08:35)
== END 2022-03-01 15:10 | disposition home or self-care (01) ==
LOC: EDUNIT# 11:54 → ER 11:56
DX: L50.0 Allergic urticaria (principal); Z28.310 Unvaccinated for COVID-19
CPT/HCPCS: 36415; 80053; 84703; 85007; 85027

== ENCOUNTER 2022-03-02 15:25 | Emergency (ER) | payer MEDICAID ==
[~2022-03-02] VITALS: Ht 160 cm; Wt 112.0 kg
[~2022-03-02 15:25] MED LIST changes: +EPIN0.3P3 IJ; +LEVO5TAB28 PO
[2022-03-02] MEDS ORDERED: LORATADINE (CLARITIN) 10 MG TAB PO ONE (15:45)
[2022-03-02] MEDS ORDERED: FAMOTIDINE 20 MG (PEPCID) TABLET PO ONE (15:45)
--- NOTE | 2022-03-02 15:52 | ED General ---
General Chief Complaint: Allergic Reaction Stated Complaint: SOA/HIVES Nursing Triage Note: PT STATES SHE HAD AN ALLERGIC RXN TO A [facility], FINISHED THE RX LAST WEDNESDAY AND STARTED GETTING SICK 3 DAYS AFTER, STATES THERE IS NOTHING ELSE IT COULD BE, STATES SOB, 98% ON ROOM AIR AT TRIAGE, STATES PAIN FROM HER THROAT TO HER UPPER CHEST WHEN BREATHING, SKIN IS RED AND FLUSHED, STATES IT HAS BEEN LIKE THIS ALL DAY, WAS SEEN HERE YESTERDAY FOR THE SAME (DAQUAN SHIN APRN) History of Present Illness Date Seen by Provider: Mar 02, 2022 Time Seen by Provider: 15:40 Initial Comments Patient is a 31-year-old female who presents to the emergency department for evaluation of possible allergic reaction. Patient states the allergic reaction is related to a steroid she took that finished last Wednesday. She states that symptoms began approximately 3 days after. Patient was seen at this emergency department yesterday where she was noted to have some facial swelling as well as bilateral upper extremity urticaria. Patient was also complaining of some mild shortness of air. Due to multisymptom organ involvement, a dose of IM epinephrine was given. Patient has also given antihistamine and steroid treatment. Patient was monitored for approximately 2 hours thereafter with some resolution of symptoms. Patient was requesting to leave at that time and she was thus discharged. Patient states that she has had persistent rash to her chest that is red and itches. Patient also endorses some mild shortness of breath. She has not had any nausea/vomiting. She has not had any wheezing per her report. She has been able to eat and drink normally. Patient was sent home yesterday with a prescription for Xyzal and EpiPen's. There was an issue with insurance being able to fill these. She states she took a single dose of Benadryl today but has had no other medications. Patient has not made an appointment for follow-up with her PCP. (DAQUAN SHIN APRN) Allergies and Home Medications Allergies Coded Allergies: No Known Drug Allergies (Unverified , 12/28/09) Patient Home Medication List Home Medication List Reviewed: Yes (DAQUAN SHIN APRN) Epinephrine (Epipen 2-Vipul) 0.3 Mg/0.3 Ml Auto.injct, 0.3 MG IJ NEEDED Prescribed by: LEONILA CASTILLO on 03/02/22 0835 Levocetirizine Dihydrochloride (Xyzal) 5 Mg Tablet, 5 MG PO BID Prescribed by: LEONILA CASTILLO on 03/02/22 0835 Ondansetron (Ondansetron Odt) 4 Mg Tab.rapdis, 4 MG PO TID PRN for NAUSEA/VOMITING-1ST LINE Prescribed by: MEHNAZ GALLOWAY on 10/12/21 1359 Promethazine HCl (Promethazine Tablet) 25 Mg Tablet, 25 MG PO Q6H PRN for NAUSEA/VOMITING Prescribed by: RENE CASTELLANO on 06/21/20 0944 Review of Systems Review of Systems Constitutional: no symptoms reported EENTM: no symptoms reported Respiratory: see HPI Cardiovascular: no symptoms reported Gastrointestinal: no symptoms reported Genitourinary: no symptoms reported Skin: see HPI (DAQUAN SHIN APRN) Past Aowpdep-Icggds-Twodsl Hx Patient Social History Tobacco Use?: Yes Smoking Status: Former Smoker Use of E-Cig and/or Vaping dev: Yes E-Cig or Vaping type used: CBD Substance use?: No Alcohol Use?: No (DAQUAN SHIN APRN) Immunizations Up To Date Tetanus Booster (TDap): Less than 5yrs Second COVID19 Vaccination Torito: YES COVID19 Vaccine 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: [employer] (DAQUAN SHIN APRN) Past Medical History Surgery/Hospitalization HX: BI LAT KNEE SCOPE, C SECTION, RT 5TH DIGIT PINNED FROM TRAUMA (NOT IN FINGER NOW) Surgeries: Yes (BILAT KNEE ) Bladder Surgery, Section, Orthopedic Respiratory: No Cardiac: No Neurological: No Reproductive Disorders: No Female Reproductive Disorders: Polycystic Ovarian Dis Gastrointestinal: No Musculoskeletal: No Endocrine: Yes ( IS WATCHING HER BLOOD SUGARS) Cancer: No Psychosocial: No Integumentary: No Blood Disorders: No Adverse Reaction/Blood Tranf: No (DAQUAN SHIN APRN) Family Medical History Family history: Cardiovascular disease MATERNAL GRANDMOTHER Family history: Hypertension MATERNAL GRANDMOTHER Infertile Tuberculosis 03 MOTHER No Pertinent Family Hx (DAQUAN SHIN APRN) Physical Exam Vital Signs Vital Signs - First Documented 03/02/22 03/02/22 15:29 16:02 Temp 37.0 Pulse 81 Resp 20 B/P (MAP) 134/66 (88) Pulse Ox 98 O2 Delivery Room Air (LEONILA COBURN MD) Vital Signs Capillary Refill : (DAQUAN SHIN APRN) Height, Weight, BMI Height: 5'3" Weight: 240lbs. 5.0oz. 109.270574vq; 43.00 BMI Method:Stated General Appearance: No Apparent Distress, WD/WN HEENT: PERRL/EOMI, TMs Normal, Normal ENT Inspection, Pharynx Normal Neck: Full Range of Motion, Normal Inspection, Non Tender, Supple Respiratory: Chest Non Tender, Lungs Clear, Normal Breath Sounds, No Accessory Muscle Use, No Respiratory Distress Cardiovascular: Regular Rate, Rhythm Gastrointestinal: Normal Bowel Sounds Back: Normal Inspection, No Vertebral Tenderness Extremity: Normal Capillary Refill, Normal Inspection, Normal Range of Motion, Non Tender, No Calf Tenderness Neurologic/Psychiatric: Alert, Oriented x3, No Motor/Sensory Deficits, Normal Mood/Affect Skin: Normal Color, Warm/Dry Lymphatic: No Adenopathy Comments raised red urticarial rash noted to the upper chest; lungs clear to auscultation with no wheezing; no increased WOB noted on exam (DAQUAN SHIN APRN) Progress/Results/Core Measures Suspected Sepsis SIRS Temperature: Pulse: 81 Respiratory Rate: Blood Pressure 134 /66 Mean: 88 (DAQUAN SHIN APRN) Results/Orders Medications Given in ED Current Medications Medications Dose Ordered Sig/Osei Route Start Time Stop Time Status Last Admin Dose Admin Famotidine 20 mg ONCE ONCE PO 03/02/22 15:45 03/02/22 15:47 DC 03/02/22 15:59 20 MG Loratadine 10 mg ONCE ONCE PO 03/02/22 15:45 03/02/22 15:47 DC 03/02/22 15:59 10 MG (LEONILA COBURN MD) Vital Signs/I&O 03/02/22 03/02/22 15:29 16:02 Temp 37.0 37.0 Pulse 81 67 Resp 20 B/P (MAP) 134/66 (88) 114/57 Pulse Ox 98 98 O2 Delivery Room Air Room Air (LEONILA COBURN MD) Vital Signs/I&O Capillary Refill : (DAQUAN SHIN APRN) Blood Pressure Mean: 88 Progress Note : Progress Note Patient is nontoxic and well-hydrated on exam. She does have some mild raised red urticarial rash to her upper chest. No adventitious lung sounds or increased work of breathing noted on exam. Vital signs are reassuring. Patient is not hypoxic. No wheezing or stridor noted. Patient's facial swelling is much improved from yesterday. No oropharyngeal swelling noted on exam. Patient was given a dose of loratadine and Pepcid while in the emergency department. She will be discharged home with recommendations to continue dosing of the same. She was strongly encouraged to follow-up with PCP to see if she were to need any other formal allergy testing if the symptoms persist or recur. Discussed symptomology that would be concerning for anaphylaxis. Return precautions for urgent symptomology discussed. Patient verbalized understanding. (DAQUAN SHIN APRN) Departure Impression Primary Impression: Urticarial rash Disposition: 01 HOME, SELF-CARE Condition: Stable Departure-Patient Inst. Referrals: MARYAM CHRISTINA MD (PCP/Family) Primary Care Physician Patient Instructions: Ramirez (DC) Add. Discharge Instructions: You may take over the counter cetirizine (Zyrtec) and famotidine (Pepcid) for the symptoms. It may take multiple days of taking the medications for the symptoms to improve. You may take 10 mg of the cetirizine (Zyrtec) up to twice daily. You may take 20 mg of the famotidine (Pepcid) twice daily. This will hopefully help with the itchy rash and any other symptoms you may have. It is important you follow-up with your regular doctor for further evaluation and reassessment. All discharge instructions reviewed with patient and/or family. Voiced und erstanding. ATTENDING PHYSICIAN NOTE: I was physically present as attending physician in the emergency department during the care of this patient, but I was not directly involved in the decision making or delivery of care for this patient. (LEONILA COBURN MD) DAQUAN SHIN APRN Mar 02, 2022 15:52 LEONILA COBURN MD Mar 02, 2022 19:26
[2022-03-02 16:02] VITALS: BP 114/57
== END 2022-03-02 16:02 | disposition home or self-care (01) ==
LOC: EDUNIT# 15:25 → ER 15:28
DX: L50.9 Urticaria, unspecified (principal); Z87.891 Personal history of nicotine dependence
CPT/HCPCS: 99285

== ENCOUNTER 2022-03-02 23:24 | Emergency (ER) | payer MEDICAID ==
--- NOTE | 2022-03-02 23:49 | ED General ---
General Chief Complaint: General Problems/Pain Stated Complaint: LIP SWELLING,CP Source of Information: Patient Exam Limitations: No Limitations History of Present Illness Date Seen by Provider: Mar 02, 2022 Time Seen by Provider: 23:30 Initial Comments 31-year-old female presents emerged department today from home with lip swelling. She also has some burning in her chest. She has been seen here earlier in the day today at 4 PM last night for allergic reaction. Unclear source however she did start diclofenac and methylprednisolone prior to onset of her symptoms. On her first visit she was given a dose of IM epi due to multisystem involvement. Second visit to the ER she did not Benadryl, cetirizine. She states she has not taken any Benadryl since she was seen here at 4:00. Her rash has resolved. The burning in her chest has persisted. She also has some mild lower lip swelling but states her swelling has improved. She denies any shortness of breath. No abdominal pain nausea or vomiting. Allergies and Home Medications Allergies Coded Allergies: No Known Drug Allergies (Unverified , 12/28/09) Patient Home Medication List Home Medication List Reviewed: Yes Epinephrine (Epipen 2-Vipul) 0.3 Mg/0.3 Ml Auto.injct, 0.3 MG IJ NEEDED Prescribed by: LEONILA CASTILLO on 03/02/22 0835 Levocetirizine Dihydrochloride (Xyzal) 5 Mg Tablet, 5 MG PO BID Prescribed by: LEONILA CASTILLO on 03/02/22 0835 Ondansetron (Ondansetron Odt) 4 Mg Tab.rapdis, 4 MG PO TID PRN for NAUSEA/VOMITING-1ST LINE Prescribed by: MEHNAZ GALLOWAY on 10/12/21 1359 Promethazine HCl (Promethazine Tablet) 25 Mg Tablet, 25 MG PO Q6H PRN for NAUSEA/VOMITING Prescribed by: RENE CASTELLANO on 06/21/20 0944 Review of Systems Review of Systems Constitutional: see HPI EENTM: see HPI Respiratory: see HPI Cardiovascular: see HPI Gastrointestinal: see HPI Genitourinary: see HPI Musculoskeletal: see HPI Skin: see HPI Psychiatric/Neurological: See HPI Hematologic/Lymphatic: See HPI Immunological/Allergic: see HPI Past Oxvqdhu-Hogltl-Nluzmp Hx Immunizations Up To Date Tetanus Booster (TDap): Less than 5yrs First/Initial COVID19 Vaccinat: YES Second COVID19 Vaccination Torito: YES Third COVID19 Vaccination Date: YES Past Medical History Surgery/Hospitalization HX: BI LAT KNEE SCOPE, C SECTION, RT 5TH DIGIT PINNED FROM TRAUMA (NOT IN FINGER NOW) Surgeries: Yes (BILAT KNEE ) Bladder Surgery, Section, Orthopedic Respiratory: No Cardiac: No Neurological: No Reproductive Disorders: No Female Reproductive Disorders: Polycystic Ovarian Dis Gastrointestinal: No Musculoskeletal: No Endocrine: Yes ( IS WATCHING HER BLOOD SUGARS) Cancer: No Psychosocial: No Integumentary: No Blood Disorders: No Adverse Reaction/Blood Tranf: No Family Medical History Family history: Cardiovascular disease MATERNAL GRANDMOTHER Family history: Hypertension MATERNAL GRANDMOTHER Infertile Tuberculosis 03 MOTHER No Pertinent Family Hx Physical Exam Vital Signs Capillary Refill : NONE Height, Weight, BMI Height: 5'3" Weight: 240lbs. 5.0oz. 109.320140lg; 43.00 BMI Method:Stated General Appearance: No Apparent Distress, WD/WN HEENT: PERRL/EOMI, TMs Normal, Normal ENT Inspection, Pharynx Normal, Other (Very mild swelling of left lower lip. Tongue is normal. Uvula is midline with no pharyngeal edema) Neck: Full Range of Motion, Normal Inspection, Non Tender, Supple Respiratory: Chest Non Tender, Lungs Clear, Normal Breath Sounds, No Accessory Muscle Use, No Respiratory Distress Cardiovascular: Regular Rate, Rhythm, No Edema, No Gallop, No JVD, No Murmur, Normal Peripheral Pulses Gastrointestinal: Normal Bowel Sounds, No Organomegaly, No Pulsatile Mass, Non Tender, Soft Extremity: Normal Capillary Refill, Normal Inspection, Normal Range of Motion, Non Tender, No Calf Tenderness Neurologic/Psychiatric: Alert, Oriented x3, Normal Mood/Affect Skin: Normal Color, Warm/Dry Lymphatic: No Adenopathy Progress/Results/Core Measures Suspected Sepsis SIRS Temperature: Pulse: Respiratory Rate: Blood Pressure / Mean: Results/Orders My Orders Orders - BRUCEANA DO Diphenhydramine Injection (Benadryl Inje (03/03/22 00:00) Vital Signs/I&O Capillary Refill : NONE Departure Communication (Admissions) Patient is hemodynamically stable. She has mild lower lip swelling. No wheezing. No tachycardia. No nausea or vomiting. She does have some exertional chest burning, unclear etiology at this point. No indication of cardiac etiology she has had this on both previous occasions when she was here. Her rash is cleared up. There is no evidence for airway obstruction or involvement. She is discharged home with supportive care for close follow-up. Recommend she get her EpiPen's and use Benadryl every 6 hours. She states understanding. Impression Primary Impression: Allergic reaction Qualified Codes: T78.40XA - Allergy, unspecified, initial encounter Additional Impressions: Urticarial rash Lip swelling Disposition: 01 HOME, SELF-CARE Condition: Stable Departure-Patient Inst. Referrals: PEACE SUERO DO (PCP) Primary Care Physician [facility] [place] Patient Instructions: Allergic Reaction ED Add. Discharge Instructions: Continue to use 50 mg of Benadryl every 6 hours for the next couple of days. Call to schedule an appoint with the [facility] at your earliest convenience. Turn to the emergency department for any difficulty breathing. All discharge instructions reviewed with patient and/or family. Voiced understanding. ANA BARRERA DO Mar 02, 2022 23:49
[2022-03-02 23:55] VITALS: BP 143/92
[2022-03-03] MEDS ORDERED: diphenhydrAMINE 50 MG/ML INJ (BENADRYL) IM ONE
== END 2022-03-02 23:56 | disposition home or self-care (01) ==
LOC: EDUNIT# 23:24 → ER 23:27
DX: L50.0 Allergic urticaria (principal); R07.9 Chest pain, unspecified
CPT/HCPCS: 99284

== ENCOUNTER 2022-05-12 23:05 | Emergency (ER) | payer MEDICAID ==
--- NOTE | 2022-05-12 23:19 | ED General ---
General Stated Complaint: ETOH History of Present Illness Date Seen by Provider: May 12, 2022 Time Seen by Provider: 23:18 Initial Comments 30-year-old female with PMH of DM2/psych disorder, is here with complaints of nausea and vomiting after she drank 9 beers and 1 fireball today. Patient stated that her last meal was today morning. Patient does not smoke and states that she only drinks once in a while while, and states that she does not have an alcohol problem. Denies drug intake, fever, abdominal pain, diarrhea, headache, dizziness, slurred speech. Patient is able to speak in clear sentences and answer all questions, and she is oriented x3. Patient with retching and vomiting in the ER. Allergies and Home Medications Allergies Coded Allergies: No Known Drug Allergies (Unverified , 12/28/09) Patient Home Medication List Home Medication List Reviewed: Yes Epinephrine (Epipen 2-Vipul) 0.3 Mg/0.3 Ml Auto.injct, 0.3 MG IJ NEEDED Prescribed by: LEONILA CASTILLO on 03/02/22 0835 Levocetirizine Dihydrochloride (Xyzal) 5 Mg Tablet, 5 MG PO BID Prescribed by: LEONILA CASTILLO on 03/02/22 0835 Ondansetron (Ondansetron Odt) 4 Mg Tab.rapdis, 4 MG PO TID PRN for NAUSEA/VOMITING-1ST LINE Prescribed by: MEHNAZ GALLOWAY on 10/12/21 1359 Promethazine HCl (Promethazine Tablet) 25 Mg Tablet, 25 MG PO Q6H PRN for NAUSEA/VOMITING Prescribed by: RENE CASTELLANO on 06/21/20 0944 Review of Systems Review of Systems Constitutional: no symptoms reported EENTM: no symptoms reported Respiratory: no symptoms reported Gastrointestinal: nausea, vomiting Genitourinary: no symptoms reported Musculoskeletal: no symptoms reported Skin: no symptoms reported Psychiatric/Neurological: No Symptoms Reported Hematologic/Lymphatic: No Symptoms Reported Immunological/Allergic: no symptoms reported Past Cfbrdev-Rajtzx-Krjzlw Hx Immunizations Up To Date Tetanus Booster (TDap): Less than 5yrs First/Initial COVID19 Vaccinat: YES Second COVID19 Vaccination Torito: YES Third COVID19 Vaccination Date: YES Past Medical History Surgery/Hospitalization HX: BI LAT KNEE SCOPE, C SECTION, RT 5TH DIGIT PINNED FROM TRAUMA (NOT IN FINGER NOW) Surgeries: Yes (BILAT KNEE ) Bladder Surgery, Section, Orthopedic Respiratory: No Cardiac: No Neurological: No Reproductive Disorders: No Female Reproductive Disorders: Polycystic Ovarian Dis Gastrointestinal: No Musculoskeletal: No Endocrine: Yes ( IS WATCHING HER BLOOD SUGARS) Cancer: No Psychosocial: No Integumentary: No Blood Disorders: No Adverse Reaction/Blood Tranf: No Family Medical History Family history: Cardiovascular disease MATERNAL GRANDMOTHER Family history: Hypertension MATERNAL GRANDMOTHER Infertile Tuberculosis 03 MOTHER No Pertinent Family Hx Physical Exam Vital Signs Vital Signs - First Documented 05/12/22 23:19 Temp 36.8 Pulse 96 Resp 20 B/P (MAP) 130/95 (107) Pulse Ox 20 O2 Delivery Room Air Capillary Refill : Height, Weight, BMI Height: 5'3" Weight: 240lbs. 5.0oz. 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 Norm as Tested Skin: Normal Color Lymphatic: No Adenopathy Progress/Results/Core Measures Suspected Sepsis SIRS Temperature: Pulse: Respiratory Rate: Blood Pressure / Mean: Results/Orders Lab Results Laboratory Tests Test 05/12/22 23:26 Range/Units Glucometer 118 H 70-110 MG/DL My Orders Orders - JOHN BRISCOE MD Accucheck Achs ACHS (05/12/22 23:25) Ondansetron Oral Dissolve Tab (Zofran (05/12/22 23:30) Prochlorperazine Injection (Compazine In (05/13/22 00:15) Medications Given in ED Current Medications Medications Dose Ordered Sig/Osei Route Start Time Stop Time Status Last Admin Dose Admin Ondansetron HCl 4 mg ONCE ONCE PO 05/12/22 23:30 05/12/22 23:31 DC 05/12/22 23:33 4 MG Vital Signs/I&O 05/12/22 05/12/22 23:19 23:33 Temp 36.8 36.8 Pulse 96 96 Resp 20 20 B/P (MAP) 130/95 (107) 130/95 Pulse Ox 20 20 O2 Delivery Room Air Room Air Capillary Refill : Progress Note : Progress Note ALCOHOL INDUCED NAUSEA AND VOMITING: - Fingerstick: - Zofran 4mg ODT STAT and then later Compazine 10mg im. Pt had significant improvement after medications - Take home pack of ZOfran given from ER - Advised pt to eat food and drink adequate water once she goes home - Advised not to binge on alcohol in excessive amounts - Follow up with PCP in 7 days -The patient was seen in the ED, and treated appropriately to presentation at a specific point in time. Patient is informed that there is a possibility that disease and illness can evolve and change in acuity rapidly or slowly after patient is discharged from the ER. Precautionary advice given to the patient for immediate return to ER if symptoms worsen or do not resolve, and to seek emergency care sooner rather than later. Pt also advised on the importance of PCP follow up and compliance with management and follow up plan with PCP and/or specialist, as this is part of the management plan. Pt verbally expressed understanding. Departure Impression Primary Impression: ETOH abuse Additional Impression: Nausea and vomiting Disposition: 01 HOME, SELF-CARE Condition: Improved Departure-Patient Inst. Referrals: PEACE SUERO DO (PCP/Family) Primary Care Physician Patient Instructions: Nausea and Vomiting, Adult, Alcohol Use Disorder (DC), Binge Drinking Add. Discharge Instructions: - Take home pack of ZOfran given from ER - Advised pt to eat food and drink adequate water once she goes home - Advised not to binge on alcohol in excessive amounts - Follow up with PCP in 7 days Scripts Ondansetron (Ondansetron Odt) 4 Mg Tab.rapdis 4 MG SL Q4H PRN for NAUSEA/VOMITING for 3 Days, #5 TAB Prov: JOHN BRISCOE MD 05/13/22 JOHN BRISCOE MD May 12, 2022 23:18
[2022-05-12] MEDS ORDERED: ONDANSETRON 4 MG (ZOFRAN) ORAL DISSOLVE TAB PO ONE (23:30)
[2022-05-12 23:33] VITALS: BP 130/95
[2022-05-13] MEDS ORDERED: ONDA4TAB11 SL (00:14)
[2022-05-13] MEDS ORDERED: PROCHLORPERAZINE 10 MG/2ML INJ (COMPAZINE) IM ONE (00:15)
[2022-05-13] MEDS ORDERED: RX-ONDANSETRON 4 MG ODT (ZOFRAN) PPK #4 PO PRN (00:15)
== END 2022-05-13 00:23 | disposition home or self-care (01) ==
LOC: EDUNIT# 23:05 → ER 23:09
DX: F10.10 Alcohol abuse, uncomplicated (principal); Z28.310 Unvaccinated for COVID-19
CPT/HCPCS: 82947

== ENCOUNTER 2022-07-22 16:41 | Emergency (ER) | payer MEDICAID ==
[~2022-07-22] VITALS: Ht 160 cm; Wt 122.0 kg
[~2022-07-22 16:41] MED LIST changes: +ONDA4TAB11 SL
[2022-07-22] MEDS ORDERED: RT-ALBUTEROL SULF 2.5 MG/3 ML PRE-MIX VIAL INH ONE (17:00)
[2022-07-22] MEDS ORDERED: methylPREDNISolone 125 MG (Solu-MEDROL) VIAL IVP ONE (17:00)
--- NOTE | 2022-07-22 17:01 | ED Cough/URI ---
General Chief Complaint: Cough/Cold/Flu Symptoms Stated Complaint: SOB| COUGH|BODY ACHES Source: patient Exam Limitations: no limitations History of Present Illness Date Seen by Provider: Jul 22, 2022 Time Seen by Provider: 16:58 Initial Comments Patient is a 32-year-old female who presents ED with flulike symptoms. Symptoms started last Wednesday. She started having bodyaches, fatigue, cough and shortness of breath. She reports clear sputum production with the cough. Started having wheezing. Wednesday went to the clinic and was prescribed albuterol and prednisone. She has finished the prednisone after 4 days. Has been using albuterol regularly without much improvement. She Was prescribed amoxicillin yesterday without much improvement. Continue chest tightness, wheezing, cough. Fever last Wednesday that was low-grade. Started having diarrhea. Other family members at home were sick. She had a negative COVID influenza swab at home. She denies of any coronary artery disease, history of asthma, smoking, diabetes, recent travels or surgeries. She does have IUD. No urinary symptoms. Patient denies abdominal pain, vomiting, dysuria, hematuria, lower extremity swelling, weakness, Headache. Allergies and Home Medications Allergies Coded Allergies: No Known Drug Allergies (Unverified , 12/28/09) Patient Home Medication List Home Medication List Reviewed: Yes Albuterol Sulfate (Albuterol Sulfate) 2.5 Mg/3 Ml (0.083 %) Vial.neb, 2.5 MG INH Q4H Prescribed by: MEHNAZ GALLOWAY on 07/22/221938 Epinephrine (Epipen 2-Vipul) 0.3 Mg/0.3 Ml Auto.injct, 0.3 MG IJ NEEDED Prescribed by: LEONILA CASTILLO on 03/02/22 0835 Levocetirizine Dihydrochloride (Xyzal) 5 Mg Tablet, 5 MG PO BID Prescribed by: LEONILA CASTILLO on 03/02/22 08 Nebulizer/Compressor (Innospire Piper [place] Neb) 1 Each Each, EACH MC DAILY PRN, (DME) Prescribed by: MEHNAZ GALLOWAY on 07/22/221938 Ondansetron (Ondansetron Odt) 4 Mg Tab.rapdis, 4 MG PO TID PRN for NAUSEA/VOMITING-1ST LINE Prescribed by: MEHNAZ GALLOWAY on 10/12/21 1359 Ondansetron (Ondansetron Odt) 4 Mg Tab.rapdis, 4 MG SL Q4H PRN for NAUSEA/VOMITING Prescribed by: JOHN BRISCOE MD on 05/13/22 0014 Prednisone (Prednisone) 20 Mg Tab, 40 MG PO DAILY Prescribed by: MEHNAZ GALLOWAY on 07/22/22 1939 Promethazine HCl (Promethazine Tablet) 25 Mg Tablet, 25 MG PO Q6H PRN for NAUSEA/VOMITING Prescribed by: RENE CASTELLANO on 06/21/20 0944 Review of Systems Review of Systems Constitutional: chills, fever, malaise, weakness EENTM: No hearing loss, No blurred vision, No double vision Respiratory: short of breath Cardiovascular: chest pain Gastrointestinal: No abdominal pain; diarrhea; No nausea, No vomiting Genitourinary: No decreased output, No discharge, No dysuria, No frequency Musculoskeletal: No back pain, No joint pain Skin: No change in color Hematologic/Lymphatic: Denies Anemia All Other Systems Reviewed Negative Unless Noted: Yes Past Wblvlza-Gkwgqp-Jvyers Hx Immunizations Up To Date Tetanus Booster (TDap): Less than 5yrs First/Initial COVID19 Vaccinat: YES Second COVID19 Vaccination Torito: YES Third COVID19 Vaccination Date: YES Past Medical History Surgery/Hospitalization HX: BI LAT KNEE SCOPE, C SECTION, RT 5TH DIGIT PINNED FROM TRAUMA (NOT IN FINGER NOW) Surgeries: Yes (BILAT KNEE ) Bladder Surgery, Section, Orthopedic Respiratory: No Cardiac: No Neurological: No Reproductive Disorders: No Female Reproductive Disorders: Polycystic Ovarian Dis Gastrointestinal: No Musculoskeletal: No Endocrine: Yes ( IS WATCHING HER BLOOD SUGARS) Cancer: No Psychosocial: No Integumentary: No Blood Disorders: No Adverse Reaction/Blood Tranf: No Family Medical History Family history: Cardiovascular disease MATERNAL GRANDMOTHER Family history: Hypertension MATERNAL GRANDMOTHER Infertile Tuberculosis 03 MOTHER No Pertinent Family Hx Physical Exam Vital Signs - First Documented 07/22/22 16:53 Temp 35.6 Pulse 62 Resp 20 B/P (MAP) 127/68 (87) Pulse Ox 97 O2 Delivery Room Air Capillary Refill : Height: 5'3" Weight: 240lbs. 5.0oz. 109.680027js; 43.00 BMI Method:Stated General Appearance: WD/WN, no apparent distress Eyes: Bilateral Eye Normal Inspection, Bilateral Eye PERRL, Bilateral Eye Abnormal EOM HEENT: PERRL/EOMI, normal ENT inspection, TMs normal, pharynx normal Neck: non-tender, full range of motion, supple, normal inspection Respiratory: chest non-tender, lungs clear, wheezing (Bilateral inspiratory expiratory wheeze) Cardiovascular: regular rate, rhythm, no edema, no gallop, no JVD Gastrointestinal: normal bowel sounds, non tender, soft, no organomegaly Extremities: normal range of motion, non-tender, normal inspection, no pedal edema Neurologic/Psychiatric: film splicer II-XII nml as tested, no motor/sensory deficits, alert, normal mood/affect, oriented x 3 Skin: normal color, warm/dry Progress/Results/Core Measures Suspected Sepsis SIRS Temperature: Pulse: Respiratory Rate: Laboratory Tests 07/22/22 17:00: White Blood Count 16.7H Blood Pressure / Mean: Laboratory Tests 07/22/22 17:00: Creatinine 0.82, Platelet Count 287, Total Bilirubin 0.3 Results/Orders Lab Results Laboratory Tests Test 07/22/22 17:00 Range/Units White Blood Count 16.7 H 4.3-11.0 10^3/uL Red Blood Count 4.60 3.80-5.11 10^6/uL Hemoglobin 13.1 11.5-16.0 g/dL Hematocrit 39 35-52 % Mean Corpuscular Volume 85 80-99 fL Mean Corpuscular Hemoglobin 29 25-34 pg Mean Corpuscular Hemoglobin Concent 33 32-36 g/dL Red Cell Distribution Width 13.1 10.0-14.5 % Platelet Count 287 130-400 10^3/uL Mean Platelet Volume 10.6 9.0-12.2 fL Immature Granulocyte % (Auto) 3 % Neutrophils (%) (Auto) 43 42-75 % Lymphocytes (%) (Auto) 48 H 12-44 % Monocytes (%) (Auto) 5 0-12 % Eosinophils (%) (Auto) 1 0-10 % Basophils (%) (Auto) 1 0-10 % Neutrophils # (Auto) 7.1 1.8-7.8 10^3/uL Lymphocytes # (Auto) 8.0 H 1.0-4.0 10^3/uL Monocytes # (Auto) 0.8 0.0-1.0 10^3/uL Eosinophils # (Auto) 0.2 0.0-0.3 10^3/uL Basophils # (Auto) 0.1 0.0-0.1 10^3/uL Immature Granulocyte # (Auto) 0.5 H 0.0-0.1 10^3/uL Neutrophils % (Manual) 43 % Lymphocytes % (Manual) 52 % Monocytes % (Manual) 2 % Metamyelocytes % 1 % Reactive Lymphocytes 2 % Platelet Estimate NORMAL Blood Morphology Comment NORMAL Sodium Level 143 135-145 MMOL/L Potassium Level 3.4 L 3.6-5.0 MMOL/L Chloride Level 111 H 98-107 MMOL/L Carbon Dioxide Level 22 21-32 MMOL/L Anion Gap 10 5-14 MMOL/L Blood Urea Nitrogen 14 7-18 MG/DL Creatinine 0.82 0.60-1.30 MG/DL Estimat Glomerular Filtration Rate 99 BUN/Creatinine Ratio 17 Glucose Level 90 70-105 MG/DL Calcium Level 9.3 8.5-10.1 MG/DL Corrected Calcium 9.2 8.5-10.1 MG/DL Total Bilirubin 0.3 0.1-1.0 MG/DL Aspartate Amino Transf (AST/SGOT) 14 5-34 U/L Alanine Aminotransferase (ALT/SGPT) 31 0-55 U/L Alkaline Phosphatase 49 40-136 U/L Troponin I < 0.028 <0.028 NG/ML C-Reactive Protein High Sensitivity 0.59 H 0.00-0.50 MG/DL B-Type Natriuretic Peptide 65.5 <100.0 PG/ML Total Protein 7.1 6.4-8.2 GM/DL Albumin 4.1 3.2-4.5 GM/DL My Orders Orders - DEREK REESE PA Cbc With Automated Diff (07/22/22 16:57) Comprehensive Metabolic Panel (07/22/22 16:57) Hs C Reactive Protein (07/22/22 16:57) Chest 1 View, Ap/Pa Only (07/22/22 16:57) Methylprednisolone Sod Succ (Solu-Medrol (07/22/22 17:00) Albuterol Pre-Mix Nebs (Rt) (Proventil (07/22/22 17:00) Svn Small Volume Nebulizer (07/22/22 16:57) Manual Differential (07/22/22 17:00) Bnp [place] (07/22/22 17:20) Troponin I [place] (07/22/22 17:20) Ekg Tracing (07/22/22 17:21) Albuterol/Ipra Inhalation Soln (Duoneb I (07/22/22 18:15) Svn Small Volume Nebulizer (07/22/22 18:01) Dexamethasone Injection (Decadron Injec (07/22/22 18:21) Albuterol/Ipra Inhalation Soln (Duoneb I (07/22/22 18:21) Albuterol/Ipra Inhalation Soln (Duoneb I (07/22/22 18:40) Dexamethasone Injection (Decadron Injec (07/22/22 18:41) Medications Given in ED Current Medications Medications Dose Ordered Sig/Osei Route Start Time Stop Time Status Last Admin Dose Admin Albuterol Sulfate 2.5 mg ONCE ONCE INH 07/22/22 17:00 07/22/22 17:01 DC 07/22/22 17:12 2.5 MG Albuterol/ Ipratropium 3 ml ONCE ONCE INH 07/22/22 18:15 07/22/22 18:16 DC 07/22/22 18:12 3 ML Albuterol/ Ipratropium 3 ml STK-MED ONCE .ROUTE 07/22/22 18:21 07/22/22 18:24 DC 07/22/22 18:45 3 ML Dexamethasone Sodium Phosphate 4 mg STK-MED ONCE .ROUTE 07/22/22 18:21 07/22/22 18:24 DC 07/22/22 18:45 4 MG Methylprednisolone Sodium Succinate 125 mg ONCE ONCE IVP 07/22/22 17:00 07/22/22 17:01 DC 07/22/22 17:07 125 MG Vital Signs/I&O 07/22/22 07/22/22 16:53 17:12 Temp 35.6 Pulse 62 Resp 20 B/P (MAP) 127/68 (87) Pulse Ox 97 99 O2 Delivery Room Air Room Air Capillary Refill : ECG Comment Sinus rhythm with sinus arrhythmia, moderate intraventricular conduction delay, 64 bpm, QRS duration 116 MS, QTc 408 MS Departure Communication (PCP) Reviewed previous ER visits, H&P, lab testing. Patient presents ED with flulike symptoms with cough wheezing chest tightness. Patient is concerned for her chest discomfort. Denies history of similar pain. no history of asthma, smoking, heart disease, diabetes or hypertension CHF. Patient vital signs stable. She had a negative outpatient COVID influenza. Placed on amoxicillin yesterday. Has been on albuterol inhaler 1 puff every 4-6 hours. Recently finished prednisone. Patient did have notable subtle wheezing throughout the lung madden bilateral. Patient was given an albuterol nebulizer treatment initially with some improvement. Due to her current complaints CBC, CMP, t roponin, BNP and chest x-ray was ordered. Differential diagnosis of reactive airway disease, bronchitis, viral upper respiratory infection, pneumonia, CHF, ACS less likely. EKG showed sinus rhythm with sinus arrhythmia. No evidence of ST elevation, depression, ischemic changes. Normal cardiac work-up. Chest x- ray was concern for mild cardiomegaly pulmonary congestion. No evidence of consolidation, pleural effusion, pneumonia. CBC was elevated at 16. This could be related to infection versus steroids. Chemistry 3.4. Otherwise unremarkable lab work. Patient continues have mild wheezing. Was given DuoNeb with significant improvement. She states the chest tightness and breathing improved. She was requesting a nebulizer machine at home. She states she has had previous episodes where she gets a upper respiratory infection requiring breathing treatments. Currently on medication for allergies. Did prescribe a nebulizer machine with albuterol canisters. Recommend 1 nebulizer as needed for wheezing or shortness of breath every 4-6 hours. Added additional 3 days worth of 40 mg prednisone. She states she was on prednisone for 4 days. Patient was not tachycardic or hypoxic. Low risk for PE. Low risk for coronary artery disease with a low heart score. No family history of sudden cardiac . No syncope or lightheadedness with exertion. Recommend continue monitoring sympto ms at home. Continue with prescription as prescribed. If any worsening symptoms such as increased work of breathing, wheezing to return back to ED Impression Primary Impression: Bronchitis Disposition: 01 HOME, SELF-CARE Condition: Stable Departure-Patient Inst. Decision time for Depature: 17:56 Referrals: PEACE SUERO DO (PCP/Family) Primary Care Physician Patient Instructions: Cough, Adult (DC) Scripts Albuterol Sulfate (Albuterol Sulfate) 2.5 Mg/3 Ml (0.083 %) Vial.neb 2.5 MG INH Q4H, #20 EA Prov: DEREK REESE 07/22/22 Nebulizer/Compressor (Burakospire Piper [place]) 1 Each Each EACH MC DAILY PRN for Shortness of Breath, #1 Prov: DEREK REESE 07/22/22 Prednisone (Prednisone) 20 Mg Tab 40 MG PO DAILY for 3 Days, #6 TAB Prov: DEREK REESE 07/22/22 DEREK REESE Jul 22, 2022 17:01
[2022-07-22 17:07] LABS: BASOPHILS # (AUTO) 0.1 10^3/uL (0.0-0.1); BASOPHILS % (AUTO) 1 % (0-10); EOSINOPHILS # (AUTO) 0.2 10^3/uL (0.0-0.3); EOSINOPHILS % (AUTO) 1 % (0-10); HEMATOCRIT 39 % (35-52); HEMOGLOBIN 13.1 g/dL (11.5-16.0); LYMPHOCYTES % (AUTO) 48 % (12-44); MEAN CORPUSCULAR HEMOGLOBIN 29 pg (25-34); MEAN CORPUSCULAR HGB CONC 33 g/dL (32-36); MEAN CORPUSCULAR VOLUME 85 fL (80-99); MEAN PLATELET VOLUME 10.6 fL (9.0-12.2); MONOCYTES # (AUTO) 0.8 10^3/uL (0.0-1.0); MONOCYTES % (AUTO) 5 % (0-12); NEUTROPHILS # (AUTO) 7.1 10^3/uL (1.8-7.8); NEUTROPHILS % (AUTO) 43 % (42-75); PLATELET COUNT 287 10^3/uL (130-400); WHITE BLOOD COUNT 16.7 10^3/uL (4.3-11.0)
--- NOTE | 2022-07-22 17:14 | Diagnostic Imaging Report ---
INDICATION: Cough and shortness of breath. EXAMINATION: Frontal chest was obtained at 5:09 p.m. COMPARISON: 05/05/2016. FINDINGS: Heart is borderline in size. There is mild central vascular congestion with some mild right basilar atelectatic change. There is no pneumothorax or pleural fluid. IMPRESSION: Cardiomegaly and mild central vascular congestion. Mild right basilar atelectasis. No pneumothorax or pleural fluid. Dictated by: Dictated on workstation # [id number]
[2022-07-22 17:15] LABS: ALBUMIN 4.1 GM/DL (3.2-4.5); POTASSIUM 3.4 MMOL/L (3.6-5.0)
[2022-07-22 17:17] LABS: CALCIUM 9.3 MG/DL (8.5-10.1)
[2022-07-22 17:18] LABS: TOTAL PROTEIN 7.1 GM/DL (6.4-8.2)
[2022-07-22 17:20] LABS: BILIRUBIN,TOTAL 0.3 MG/DL (0.1-1.0)
[2022-07-22 17:22] LABS: CREATININE SERUM 0.82 MG/DL (0.60-1.30)
[2022-07-22 17:36] LABS: NEUTROPHILS % (MANUAL) 43 %
[2022-07-22 17:37] LABS: LYMPHOCYTES % (MANUAL) 52 %; METAMYELOCYTES % 1 %; MONOCYTES % (MANUAL) 2 %; PLATELET ESTIMATE NORMAL; RBC MORPH NORMAL; REACTIVE LYMPHOCYTES 2 %
[2022-07-22] MEDS ORDERED: RT-ALBUTEROL/IPRATROPIUM 3 ML (DUONEB) VIAL INH ONE (18:15)
[2022-07-22] MEDS ORDERED: RT-ALBUTEROL/IPRATROPIUM 3 ML (DUONEB) VIAL ONE ×2 (18:21→18:40)
[2022-07-22] MEDS ORDERED: PRD20T PO (19:39)
[2022-07-22] MEDS ORDERED: [UNRECOGNIZED DRUG - CODE] MC (19:39)
[2022-07-22] MEDS ORDERED: ALBU2.5V4 INH (19:39)
[2022-07-22 19:44] VITALS: BP 126/63
== END 2022-07-22 19:44 | disposition home or self-care (01) ==
LOC: EDUNIT# 16:41 → ER 16:42
DX: J40 Bronchitis, not specified as acute or chronic (principal); I49.8 Other specified cardiac arrhythmias; T78.40XA Allergy, unspecified, initial encounter; Z79.899 Other long term (current) drug therapy; Z79.51 Long term (current) use of inhaled steroids
CPT/HCPCS: 36415; 71045; 80053; 83880; 84484; 85007; 85027; 86141; 93005; 94640

== ENCOUNTER 2022-09-12 05:07 | Emergency (ER) | payer MEDICAID ==
[~2022-09-12] VITALS: Ht 160 cm; Wt 127.0 kg
[~2022-09-12 05:07] MED LIST changes: +ALBU2.5V4 INH; +[UNRECOGNIZED DRUG - CODE] MC
[2022-09-12] MEDS ORDERED: LACTATED RINGERS 1,000 ML IV ONE (05:30)
[2022-09-12] MEDS ORDERED: ONDANSETRON 4 MG/2 ML (SDV) Z0FRAN IVP ONE (05:30)
--- NOTE | 2022-09-12 05:47 | ED General ---
General Stated Complaint: DRINKING,VOMITING,FALL OFF TOILET & HIT HEAD Source of Information: Patient History of Present Illness Date Seen by Provider: September 12, 2022 Time Seen by Provider: 05:20 Initial Comments PT ARRIVES VIA POV FROM HOME--STATES HER MOTHER DROVE HER HERE PT WALKS IN ON HER OWN WITH AN EMESIS BASIN PT STATES SHE HAS BEEN DRINKING TONIGHT AND GOT DRUNK--AT LEAST 5-6 BEERS TONIGHT SHE STATES ABOUT 30 MINUTES AGO, SHE WAS IN THE BATHROOM AND WAS SITTING ON THE TOILET AND WAS VOMITING, AND SHE PASSED OUT AND FELL OFF TOILET AND HIT HER LEFT BROW/FOREHEAD--THERE IS A HEMATOMA, BUT SKIN IS OTHERWISE INTACT. NO BLEEDING FROM ANYWHERE RATES PAIN IN HER HEAD AN 12/10 SHE HAS VOMITED SEVERAL TIMES BEFORE AND AFTER SHE PASSED OUT. SHE FEELS SLIGHTLY DIZZY DENIES VISION CHANGES STATES HER RIGHT ARM FEELS A LITTLE TINGLY, BUT NO PROBLEMS MOVING HER ARMS NO OTHER AREAS OF PAIN OR INJURIES SHE ALSO STATES SHE HAS HAD DIARRHEA ABOUT 5-6 TIMES TONIGHT ALSO, ALONG WITH THE NAUSEA AND VOMITING NO ABDOMINAL PAIN NO CHEST PAIN OR SHORTNESS OF BREATH NO PALPITATIONS. LMP--09/09/22, IUD IN PLACE PLACED IN CERVICAL COLLAR ON ARRIVAL AND LAID IN SEMI-RECLINING POSITION PCP: [facility] Allergies and Home Medications Allergies Coded Allergies: No Known Drug Allergies (Unverified , 12/28/09) Patient Home Medication List Albuterol Sulfate (Albuterol Sulfate) 2.5 Mg/3 Ml (0.083 %) Vial.neb, 2.5 MG INH Q4H Prescribed by: MEHNAZ GALLOWAY on 07/22/221938 Epinephrine (Epipen 2-Vipul) 0.3 Mg/0.3 Ml Auto.injct, 0.3 MG IJ NEEDED Prescribed by: LEONILA CASTILLO on 03/02/22 08 Levocetirizine Dihydrochloride (Xyzal) 5 Mg Tablet, 5 MG PO BID Prescribed by: LEONILA CASTILLO on 03/02/22834 Nebulizer/Compressor (Innospire Elegance Adam Neb) 1 Each Each, EACH MC DAILY PRN, (DME) Prescribed by: MEHNAZ GALLOWAY on 07/22/221938 Ondansetron (Ondansetron Odt) 4 Mg Tab.rapdis, 4 MG PO TID PRN for NAUSEA/VOMITING-1ST LINE Prescribed by: MEHNAZ GALLOWAY on 10/12/21 1359 Ondansetron (Ondansetron Odt) 4 Mg Tab.rapdis, 4 MG SL Q4H PRN for NAUSEA/VOMITING Prescribed by: JOHN BRISCOE MD on 05/13/22 0014 Prednisone (Prednisone) 20 Mg Tab, 40 MG PO DAILY Prescribed by: MEHNAZ GALLOWAY on 07/22/221938 Promethazine HCl (Promethazine Tablet) 25 Mg Tablet, 25 MG PO Q6H PRN for NAUSEA/VOMITING Prescribed by: RENE CASTELLANO on 06/21/20 0944 Review of Systems Review of Systems Constitutional: see HPI EENTM: see HPI Respiratory: no symptoms reported Cardiovascular: no symptoms reported Gastrointestinal: see HPI, diarrhea, nausea, vomiting Genitourinary: no symptoms reported Musculoskeletal: see HPI Skin: no symptoms reported Psychiatric/Neurological: See HPI Past Zszymak-Cptzce-Tojrvz Hx Patient Social History Tobacco Use?: Yes Tobacco type used: Cigarettes Smoking Status: Current Everyday Smoker Substance use?: Yes Substance type: Marijuana Substance frequency: Daily Alcohol Use?: Yes Alcohol type: Beer Alcohol Frequency: Daily Immunizations Up To Date Tetanus Booster (TDap): Less than 5yrs First/Initial COVID19 Vaccinat: YES Second COVID19 Vaccination Torito: YES Third COVID19 Vaccination Date: YES Past Medical History Surgery/Hospitalization HX: BI LAT KNEE SCOPE, C SECTION, RT 5TH DIGIT PINNED FROM TRAUMA (NOT IN FINGER NOW) Surgeries: Yes (BILAT KNEE ) Bladder Surgery, Section, Orthopedic Respiratory: No Cardiac: No Neurological: Yes Neuropathy Reproductive Disorders: Yes Female Reproductive Disorders: Polycystic Ovarian Dis Genitourinary: No Gastrointestinal: No Musculoskeletal: Yes (ORTHO SURGERIES) Endocrine: Yes (NOT ON MEDICATIONS FOR DIABETES; MORBID OBESITY) Diabetes, Non-Insulin dep HEENT: No Cancer: No Psychosocial: No Integumentary: No Blood Disorders: No Adverse Reaction/Blood Tranf: No Family Medical History Family history: Cardiovascular disease MATERNAL GRANDMOTHER Family history: Hypertension MATERNAL GRANDMOTHER Infertile Tuberculosis 03 MOTHER No Pertinent Family Hx SOCIAL HISTORY: -SMOKES 1 PPD -ETOH--DAILY USE -DRUGS--DAILY MARIJUANA USE Physical Exam Vital Signs Vital Signs - First Documented 09/12/22 05:30 Temp 36.6 Pulse 73 Resp 16 B/P (MAP) 121/59 (79) Pulse Ox 98 O2 Delivery Room Air Capillary Refill : Height, Weight, BMI Height: 5'3" Weight: 240lbs. 5.0oz. 109.392487sc; 47.00 BMI Method:Stated General Appearance: No Apparent Distress, WD/WN, Obese, Other (SPEECH IS CLEAR, GAIT IS STEADY. MALODOROUS) HEENT: PERRL/EOMI, TMs Normal, Pharynx Normal, Other (HEMATOMA --SWELLING/BRUISING AND TENDERNESS TO LEFT BROW AREA. ) Neck: Other (IN CERVICAL COLLAR) Respiratory: Chest Non Tender, Normal Breath Sounds, No Accessory Muscle Use, No Respiratory Distress Cardiovascular: Regular Rate, Rhythm, No Murmur Gastrointestinal: Non Tender Back: No CVA Tenderness, No Vertebral Tenderness Extremity: Normal Capillary Refill, Normal Inspection, Normal Range of Motion, Non Tender, No Calf Tenderness, No Pedal Edema Neurologic/Psychiatric: Alert, Oriented x3, No Motor/Sensory Deficits, passenger attendant II- XII Norm as Tested Skin: Normal Color, Warm/Dry Progress/Results/Core Measures Suspected Sepsis SIRS Temperature: Pulse: Respiratory Rate: Laboratory Tests 09/12/22 05:35: White Blood Count 12.9H Blood Pressure / Mean: Laboratory Tests 09/12/22 05:35: Creatinine 0.83, Platelet Count 246, Total Bilirubin 0.5 Results/Orders Lab Results Laboratory Tests Test 09/12/22 05:35 09/12/22 06:28 Range/Units White Blood Count 12.9 H 4.3-11.0 10^3/uL Red Blood Count 4.58 3.80-5.11 10^6/uL Hemoglobin 13.1 11.5-16.0 g/dL Hematocrit 39 35-52 % Mean Corpuscular Volume 85 80-99 fL Mean Corpuscular Hemoglobin 29 25-34 pg Mean Corpuscular Hemoglobin Concent 34 32-36 g/dL Red Cell Distribution Width 13.1 10.0-14.5 % Platelet Count 246 130-400 10^3/uL Mean Platelet Volume 11.5 9.0-12.2 fL Immature Granulocyte % (Auto) 1 % Neutrophils (%) (Auto) 65 42-75 % Lymphocytes (%) (Auto) 26 12-44 % Monocytes (%) (Auto) 5 0-12 % Eosinophils (%) (Auto) 3 0-10 % Basophils (%) (Auto) 1 0-10 % Neutrophils # (Auto) 8.4 H 1.8-7.8 10^3/uL Lymphocytes # (Auto) 3.3 1.0-4.0 10^3/uL Monocytes # (Auto) 0.7 0.0-1.0 10^3/uL Eosinophils # (Auto) 0.3 0.0-0.3 10^3/uL Basophils # (Auto) 0.1 0.0-0.1 10^3/uL Immature Granulocyte # (Auto) 0.1 0.0-0.1 10^3/uL Sodium Level 140 135-145 MMOL/L Potassium Level 3.7 3.6-5.0 MMOL/L Chloride Level 103 98-107 MMOL/L Carbon Dioxide Level 23 21-32 MMOL/L Anion Gap 14 5-14 MMOL/L Blood Urea Nitrogen 10 7-18 MG/DL Creatinine 0.83 0.60-1.30 MG/DL Estimat Glomerular Filtration Rate 97 BUN/Creatinine Ratio 12 Glucose Level 112 H 70-105 MG/DL Calcium Level 10.3 H 8.5-10.1 MG/DL Corrected Calcium 9.9 8.5-10.1 MG/DL Total Bilirubin 0.5 0.1-1.0 MG/DL Aspartate Amino Transf (AST/SGOT) 22 5-34 U/L Alanine Aminotransferase (ALT/SGPT) 35 0-55 U/L Alkaline Phosphatase 55 40-136 U/L Total Protein 7.8 6.4-8.2 GM/DL Albumin 4.5 3.2-4.5 GM/DL Serum Test, Qualitative NEGATIVE NEGATIVE Acetaminophen Level < 10 L 10-30 UG/ML Serum Alcohol < 10 <10 MG/DL My Orders Orders - LILIANA WINCHESTER DO Ed Iv/Invasive Line Start (09/12/22 05:28) Monitor-Rhythm Ecg Trace Only (09/12/22 05:28) Alcohol (09/12/22 05:28) Cbc With Automated Diff (09/12/22 05:28) Comprehensive Metabolic Panel (09/12/22 05:28) Drug Screen Stat (Urine) (09/12/22 05:28) Hcg,Qualitative Serum (09/12/22 05:28) Ua Culture If Indicated (09/12/22 05:28) Ed Iv/Invasive Line Start (09/12/22 05:28) Lactated Ringers (Lr 1000 Ml Iv Solution (09/12/22 05:30) Ondansetron Injection (Zofran Injectio (09/12/22 05:30) Cervical Collar (09/12/22 05:28) Ct Head/Face/Cervical Wo (09/12/22 05:34) Acetaminophen (09/12/22 05:35) Scopolamine Patch (Transderm-Scop Patch) (09/12/22 06:30) Metoclopramide Injection (Reglan Injecti (09/12/22 06:30) Medications Given in ED Current Medications Medications Dose Ordered Sig/Osei Route Start Time Stop Time Status Last Admin Dose Admin Lactated Ringer's 1,000 ml @ 0 mls/hr Q0M ONCE IV 09/12/22 05:30 09/12/22 05:31 DC 09/12/22 05:45 1,000 MLS/HR Metoclopramide HCl 10 mg ONCE ONCE IVP 09/12/22 06:30 09/12/22 06:31 DC 09/12/22 06:45 10 MG Ondansetron HCl 4 mg ONCE ONCE IVP 09/12/22 05:30 09/12/22 05:32 DC 09/12/22 05:45 4 MG Scopolamine 1.5 mg ONCE ONCE TD 09/12/22 06:30 09/12/22 06:31 DC 09/12/22 06:45 1.5 MG Vital Signs/I&O 09/12/22 05:30 Temp 36.6 Pulse 73 Resp 16 B/P (MAP) 121/59 (79) Pulse Ox 98 O2 Delivery Room Air Capillary Refill : Progress Note : Progress Note GIVEN : -IV FLUIDS -ZOFRAN -REGLAN -SCOPOLAMINE PATCH NO VOMITING OR DIARRHEA DURING ER STAY Diagnostic Imaging Comments CT HEAD / MAXILLOFACIALS /CERVICAL SPINE--PER RADIOLOGIST REPORT AT 0615 FINDINGS: Findings: The brain parenchyma is normal in attenuation. No intra- or extra-axial mass or fluid collection. No acute hemorrhage. The ventricles are normal in size, shape, and morphology. The singh-white matter junction is normal. The subarachnoid cisterns are patent. The nasal bone, orbits, and maxillary are intact. The mandible is intact. The pterygoid plates are intact. There is mucosal thickening within the bilateral maxillary sinuses. The visualized portions of the orbits and globes are normal. The mastoid air cells are clear. There is straightening of the cervical lordosis. Normal facets. Normal joint spaces. No acute fracture-dislocation of the cervical spine. No high-grade spinal canal or neural foraminal narrowing. Included views of the neck demonstrates no significant abnormality. The lung apices demonstrates no significant abnormality. Impression: No acute intracranial hemorrhage. No large vascular territory gudino-white loss. No intracranial mass, midline shift, or hydrocephalus.. No acute facial fracture. No acute fracture or dislocation of the cervical spine. Reviewed: Reviewed by Me Departure Impression Primary Impression: Episode of syncope Additional Impressions: Closed head injury Periorbital hematoma of left eye Nausea, vomiting and diarrhea Disposition: HOME, SELF-CARE Condition: Improved Departure-Patient Inst. Decision time for Depature: 06:58 Referrals: [facility] (PCP/Family) Primary Care Physician Patient Instructions: [place] ED, Fainting, Adult ED, [id number], Head Injury in Adults (DC) Add. Discharge Instructions: CLEAR LIQUIDS, SIPS AT A TIME--WATER, BROTH, JELLO, GATORADE BRATS DIET--BANANAS, RICE, APPLESAUCE, TOAST, SALTINES LEAVE SCOPOLAMINE PATCH IN PLACE FOR 72 HOURS FOLLOW UP WITH YOUR DR ON WEDNESDAY IF NO BETTER, RETURN TO ER IF SYMPTOMS WORSEN Scripts Ondansetron (Ondansetron Odt) 8 Mg Tab.rapdis 8 MG PO Q6H, #10 TAB Prov: LILIANA WINCHESTER DO 09/12/22 L. Acidophilus/Pectin, [place] (Acidophilus Capsule) 7.5 Mg (30 Million Cell)-100 Mg Capsule 2 EACH PO QID, #40 CAP Prov: LILIANA WINCHESTER DO 09/12/22 LILIANA WINCHESTER DO September 12, 2022 05:47
[2022-09-12 05:56] LABS: BASOPHILS # (AUTO) 0.1 10^3/uL (0.0-0.1); BASOPHILS % (AUTO) 1 % (0-10); EOSINOPHILS # (AUTO) 0.3 10^3/uL (0.0-0.3); EOSINOPHILS % (AUTO) 3 % (0-10); HEMATOCRIT 39 % (35-52); HEMOGLOBIN 13.1 g/dL (11.5-16.0); LYMPHOCYTES # (AUTO) 3.3 10^3/uL (1.0-4.0); LYMPHOCYTES % (AUTO) 26 % (12-44); MEAN CORPUSCULAR HEMOGLOBIN 29 pg (25-34); MEAN CORPUSCULAR HGB CONC 34 g/dL (32-36); MEAN CORPUSCULAR VOLUME 85 fL (80-99); MEAN PLATELET VOLUME 11.5 fL (9.0-12.2); MONOCYTES # (AUTO) 0.7 10^3/uL (0.0-1.0); MONOCYTES % (AUTO) 5 % (0-12); NEUTROPHILS # (AUTO) 8.4 10^3/uL (1.8-7.8); NEUTROPHILS % (AUTO) 65 % (42-75); PLATELET COUNT 246 10^3/uL (130-400); WHITE BLOOD COUNT 12.9 10^3/uL (4.3-11.0)
[2022-09-12 06:01] LABS: CHLORIDE 103 MMOL/L (98-107)
[2022-09-12 06:02] LABS: ALBUMIN 4.5 GM/DL (3.2-4.5); POTASSIUM 3.7 MMOL/L (3.6-5.0); SODIUM 140 MMOL/L (135-145)
[2022-09-12 06:03] LABS: CALCIUM 10.3 MG/DL (8.5-10.1)
[2022-09-12 06:04] LABS: GLUCOSE 112 MG/DL (70-105); TOTAL PROTEIN 7.8 GM/DL (6.4-8.2)
[2022-09-12 06:05] LABS: CARBON DIOXIDE 23 MMOL/L (21-32)
[2022-09-12 06:06] LABS: BILIRUBIN,TOTAL 0.5 MG/DL (0.1-1.0)
[2022-09-12 06:08] LABS: ALKALINE PHOSPHATASE 55 U/L (40-136); CREATININE SERUM 0.83 MG/DL (0.60-1.30); GFR ESTIMATED 97
[2022-09-12 06:09] LABS: BUN/CREATININE RATIO 12
[2022-09-12 06:11] LABS: ALANINE AMINOTRANSFERASE 35 U/L (0-55)
[2022-09-12 06:13] LABS: ACETAMINOPHEN < 10 UG/ML (10-30)
--- NOTE | 2022-09-12 06:15 | Diagnostic Imaging Report ---
PROCEDURE: CT head, face, and cervical spine without contrast. TECHNIQUE: Multiple contiguous axial images were obtained through the head, neck, and facial bones without the use of intravenous contrast. Sagittal and coronal reformations through the cervical spine and facial bones were also performed. Auto Exposure Controls were utilized during the CT exam to meet ALARA standards for radiation dose reduction. INDICATION: Alcohol intoxication, syncope, vomiting, fall, facial injury. FINDINGS: Findings: The brain parenchyma is normal in attenuation. No intra- or extra-axial mass or fluid collection. No acute hemorrhage. The ventricles are normal in size, shape, and morphology. The singh-white matter junction is normal. The subarachnoid cisterns are patent. The nasal bone, orbits, and maxillary are intact. The mandible is intact. The pterygoid plates are intact. There is mucosal thickening within the bilateral maxillary sinuses. The visualized portions of the orbits and globes are normal. The mastoid air cells are clear. There is straightening of the cervical lordosis. Normal facets. Normal joint spaces. No acute fracture-dislocation of the cervical spine. No high-grade spinal canal or neural foraminal narrowing. Included views of the neck demonstrates no significant abnormality. The lung apices demonstrates no significant abnormality. Impression: No acute intracranial hemorrhage. No large vascular territory gudino-white loss. No intracranial mass, midline shift, or hydrocephalus.. No acute facial fracture. No acute fracture or dislocation of the cervical spine. Dictated by: Dictated on workstation # [id number]
[2022-09-12] MEDS ORDERED: SCOPOLAMINE 1.5 MG (TRANSDERM-SCOP) PATCH TD ONE (06:30)
[2022-09-12] MEDS ORDERED: METOCLOPRAMIDE INJ 10 MG/2 ML (REGLAN) IVP ONE (06:30)
[2022-09-12 06:48] LABS: BILIRUBIN,URINE NEGATIVE (NEGATIVE); CLARITY,URINE CLOUDY; COLOR,URINE YELLOW; GLUCOSE, URINE (UA) NEGATIVE (NEGATIVE); KETONES,URINE NEGATIVE (NEGATIVE); LEUKOCYTE ESTERASE ,URINE NEGATIVE (NEGATIVE); NITRITE,URINE NEGATIVE (NEGATIVE); PH,URINE 6.5 (5-9); PROTEIN,URINE 1+ (NEGATIVE)
[2022-09-12] MEDS ORDERED: L. A1CAP11 PO (07:01)
[2022-09-12] MEDS ORDERED: ONDA8TAB13 PO (07:01)
[2022-09-12 07:07] LABS: BACTERIA,URINE NEGATIVE /HPF; RBC,URINE 0-2 /HPF; WBC,URINE RARE /HPF
[2022-09-12 07:10] LABS: AMPHETAMINE SCREEN, URINE NEGATIVE (NEGATIVE); BARBITURATE SCREEN URINE NEGATIVE (NEGATIVE); BENZODIAZEPINES SCREEN URINE NEGATIVE (NEGATIVE); CANNABINOID SCREEN, URINE POSITIVE (NEGATIVE); COCAINE SCREEN URINE NEGATIVE (NEGATIVE); METHADONE STAT NEGATIVE (NEGATIVE); OPIATE SCREEN URINE NEGATIVE (NEGATIVE); OXYCODONE STAT NEGATIVE (NEGATIVE); PROPOXYPHENE STAT NEGATIVE (NEGATIVE); TRICYCLIC ANTIDEPRESSANTS SCRE NEGATIVE (NEGATIVE)
[2022-09-12 07:35] VITALS: BP 115/70
== END 2022-09-12 07:35 | disposition home or self-care (01) ==
LOC: EDUNIT# 05:07 → ER 05:11
DX: S09.90XA Unspecified injury of head, initial encounter (principal); S00.12XA Contusion of left eyelid and periocular area, initial encounter; R55 Syncope and collapse; R19.7 Diarrhea, unspecified; F17.210 Nicotine dependence, cigarettes, uncomplicated; E66.01 Morbid (severe) obesity due to excess calories; Z68.42 Body mass index [BMI] 45.0-49.9, adult; W18.30XA Fall on same level, unspecified, initial encounter; Y92.002 Bathroom of unspecified non-institutional (private) residence as the place of occurrence of the external cause; W22.8XXA Striking against or struck by other objects, initial encounter
CPT/HCPCS: 36415; 70450; 70486; 72125; 80053; 80306; 80320; 80329; 81000; 84703; 85025

== ENCOUNTER 2022-09-14 14:13 | Emergency (ER) | payer MEDICAID ==
[~2022-09-14] VITALS: Ht 160 cm; Wt 125.0 kg
[~2022-09-14 14:13] MED LIST changes: +L. A1CAP11 PO; +ONDA8TAB13 PO
[2022-09-14] MEDS ORDERED: NS IV 1000 ML 1,000 ML IV STA (14:37)
--- NOTE | 2022-09-14 14:42 | ED Headache ---
General Chief Complaint: Head/Cervical Problems Stated Complaint: LIGHTHEADED | DIZZY | HEADACHES Nursing Triage Note: pt sent by [facility] to ED for dizziness, lightheadedness, and headache following a head injury wednesday. pt seen wednesday after head injury and was cleared. pt reports sx have been getting worse since injury. Source: patient Exam Limitations: no limitations History of Present Illness Date Seen by Provider: September 14, 2022 Time Seen by Provider: 14:40 Initial Comments Patient is a 32-year-old female who presents the ED with dizziness, lightheadedness and headache. She suffered a head injury this past Wednesday. She was seen here in the ER had negative CT scan of her head and cervical spine. She states she was on the toilet at the time and was vomiting prior and fell hitting her head on the shower. Loss of conscious. Was brought to the ED by her mother. Since being discharged she has had increasing head pain generalized, lightheadedness and dizziness that is constant. Has been taken Tylenol. Sensitivity light with nausea without vomiting. She states she has numbness and tingling right arm but this has been ongoing for the past several months. She reports some tightness to the left side neck. Denies of any bowel or urine cons, saddle paresthesia, chest pain, shortness of breath, abdominal pain vomiting, diarrhea, fever, chills. Patient was sent over from [facility] for further evaluation. Patient last use of alcohol was last Wednesday. Denies of any blood thinner use Allergies and Home Medications Allergies Coded Allergies: No Known Drug Allergies (Unverified , 12/28/09) Patient Home Medication List Home Medication List Reviewed: Yes Albuterol Sulfate (Albuterol Sulfate) 2.5 Mg/3 Ml (0.083 %) Vial.neb, 2.5 MG INH Q4H Prescribed by: MEHNAZ GALLOWAY on 07/22/22 193 Epinephrine (Epipen 2-Vipul) 0.3 Mg/0.3 Ml Auto.injct, 0.3 MG IJ NEEDED Prescribed by: LEONILA CASTILLO on 03/02/22 0835 L. Acidophilus/Pectin, [place] (Acidophilus Capsule) 7.5 Mg (30 Million Cell)-100 Mg Capsule, 2 EACH PO QID Prescribed by: LILIANA WINCHESTER on 09/12/22 0701 Levocetirizine Dihydrochloride (Xyzal) 5 Mg Tablet, 5 MG PO BID Prescribed by: LEONILA CASTILLO on 03/02/22 0835 Nebulizer/Compressor (Innospire Elegchiara Dees Neb) 1 Each Each, EACH MC DAILY PRN, (DME) Prescribed by: MEHNAZ GALLOWAY on 07/22/22 193 Ondansetron (Ondansetron Odt) 4 Mg Tab.rapdis, 4 MG PO TID PRN for NAUSEA/VOMITING-1ST LINE Prescribed by: MEHNAZ GALLOWAY on 10/12/21 1359 Ondansetron (Ondansetron Odt) 4 Mg Tab.rapdis, 4 MG SL Q4H PRN for NAUSEA/VOMITING Prescribed by: JOHN BRISCOE MD on 05/13/22 0014 Ondansetron (Ondansetron Odt) 8 Mg Tab.rapdis, 8 MG PO Q6H Prescribed by: LILIANA WINCHESTER on 09/12/22 0701 Prednisone (Prednisone) 20 Mg Tab, 40 MG PO DAILY Prescribed by: MEHNAZ GALLOWAY on 07/22/22 193 Promethazine HCl (Promethazine Tablet) 25 Mg Tablet, 25 MG PO Q6H PRN for NAUSEA/VOMITING Prescribed by: RENE CASTELLANO on 06/21/20 0944 Review of Systems Review of Systems Constitutional: No chills, No diaphoresis, No fever, No malaise, No weakness Eyes: Denies Blurred Vision, Denies Drainage, Denies Decreased Acuity, Denies Photophobia, Denies Previous Injury Ears, Nose, Mouth, Throat: denies ear pain, denies ear discharge Respiratory: No cough Cardiovascular: No chest pain Gastrointestinal: No abdominal pain, No diarrhea, No nausea, No vomiting Genitourinary: No decreased output, No discharge Musculoskeletal: No back pain, No joint pain, No joint swelling, No muscle pain Psychiatric/Neurological: Headache, Tingling, Other (Dizziness, lightheadedness) Past Erjztyf-Gkfkqj-Fniqvp Hx Patient Social History Tobacco Use?: Yes Tobacco type used: Cigarettes Smoking Status: Current Everyday Smoker Use of E-Cig and/or Vaping dev: Yes E-Cig or Vaping type used: Nicotine Use of E-Cig and/or Vaping Vince: Current Everyday User Substance use?: Yes Substance type: Marijuana Substance frequency: Once in a while Alcohol Use?: Yes Alcohol Frequency: Once in a while Pt feels they are or have been: No Immunizations Up To Date Tetanus Booster (TDap): Less than 5yrs Influenza Vaccine Up-to-Date: No; Not Current First/Initial COVID19 Vaccinat: N/A Second COVID19 Vaccination Torito: YES Third COVID19 Vaccination Date: YES Past Medical History Surgery/Hospitalization HX: BI LAT KNEE SCOPE, C SECTION, RT 5TH DIGIT PINNED FROM TRAUMA (NOT IN FINGER NOW) Surgeries: Yes (BILAT KNEE ) Bladder Surgery, Section, Orthopedic Respiratory: No Cardiac: No Neurological: Yes Neuropathy Reproductive Disorders: Yes Female Reproductive Disorders: Polycystic Ovarian Dis Genitourinary: No Gastrointestinal: No Musculoskeletal: Yes (ORTHO SURGERIES) Endocrine: Yes (NOT ON MEDICATIONS FOR DIABETES; MORBID OBESITY) Diabetes, Non-Insulin dep HEENT: No Cancer: No Psychosocial: No Integumentary: No Blood Disorders: No Adverse Reaction/Blood Tranf: No Family Medical History Family history: Cardiovascular disease MATERNAL GRANDMOTHER Family history: Hypertension MATERNAL GRANDMOTHER Infertile Tuberculosis 03 MOTHER No Pertinent Family Hx SOCIAL HISTORY: -SMOKES 1 PPD -ETOH--DAILY USE -DRUGS--DAILY MARIJUANA USE Physical Exam Vital Signs Vital Signs - First Documented 09/14/22 14:25 Temp 36.5 Pulse 71 Resp 18 B/P (MAP) 147/92 (110) Pulse Ox 99 O2 Delivery Room Air Capillary Refill : Less Than 3 Seconds Height, Weight, BMI Height: 5'3" Weight: 240lbs. 5.0oz. 109.050787ao; 48.00 BMI Method:Stated General Appearance: WD/WN, no apparent distress HEENT: PERRL/EOMI, normal ENT inspection, TMs normal, pharynx normal Neck: non-tender, full range of motion, supple Cardiovascular: regular rate, rhythm, no edema, no gallop, no JVD Respiratory: chest non-tender, lungs clear, normal breath sounds, no respiratory distress, no accessory muscle use Gastrointestinal: normal bowel sounds, non tender, soft, no organomegaly Back: normal inspection, no CVA tenderness, no vertebral tenderness Extremities: normal range of motion, non-tender, normal inspection, no pedal edema Crainal Nerves: normal hearing, normal speech, PERRL Coordination/Gait: normal finger to nose, normal gait Motor/Sensory: no motor deficit, no sensory deficit, no pronator drift Skin: normal color, warm/dry Progress/Results/Core Measures Results/Orders Lab Results Laboratory Tests Test 09/14/22 15:00 Range/Units White Blood Count 9.8 4.3-11.0 10^3/uL Red Blood Count 4.42 3.80-5.11 10^6/uL Hemoglobin 12.7 11.5-16.0 g/dL Hematocrit 38 35-52 % Mean Corpuscular Volume 86 80-99 fL Mean Corpuscular Hemoglobin 29 25-34 pg Mean Corpuscular Hemoglobin Concent 33 32-36 g/dL Red Cell Distribution Width 12.9 10.0-14.5 % Platelet Count 243 130-400 10^3/uL Mean Platelet Volume 11.2 9.0-12.2 fL Immature Granulocyte % (Auto) 1 % Neutrophils (%) (Auto) 49 42-75 % Lymphocytes (%) (Auto) 38 12-44 % Monocytes (%) (Auto) 6 0-12 % Eosinophils (%) (Auto) 5 0-10 % Basophils (%) (Auto) 1 0-10 % Neutrophils # (Auto) 4.8 1.8-7.8 10^3/uL Lymphocytes # (Auto) 3.7 1.0-4.0 10^3/uL Monocytes # (Auto) 0.6 0.0-1.0 10^3/uL Eosinophils # (Auto) 0.5 H 0.0-0.3 10^3/uL Basophils # (Auto) 0.1 0.0-0.1 10^3/uL Immature Granulocyte # (Auto) 0.1 0.0-0.1 10^3/uL Sodium Level 140 135-145 MMOL/L Potassium Level 3.8 3.6-5.0 MMOL/L Chloride Level 108 H 98-107 MMOL/L Carbon Dioxide Level 22 21-32 MMOL/L Anion Gap 10 5-14 MMOL/L Blood Urea Nitrogen 10 7-18 MG/DL Creatinine 0.82 0.60-1.30 MG/DL Estimat Glomerular Filtration Rate 99 BUN/Creatinine Ratio 12 Glucose Level 97 70-105 MG/DL Calcium Level 9.4 8.5-10.1 MG/DL Corrected Calcium 9.2 8.5-10.1 MG/DL Total Bilirubin 0.3 0.1-1.0 MG/DL Aspartate Amino Transf (AST/SGOT) 18 5-34 U/L Alanine Aminotransferase (ALT/SGPT) 28 0-55 U/L Alkaline Phosphatase 49 40-136 U/L Total Protein 7.1 6.4-8.2 GM/DL Albumin 4.2 3.2-4.5 GM/DL My Orders Orders - DEREK REESE Cbc With Automated Diff (09/14/22 14:37) Comprehensive Metabolic Panel (09/14/22 14:37) Ns Iv 1000 Ml (Sodium Chloride 0.9%) (09/14/22 14:37) Ketorolac Injection (Toradol Injection) (09/14/22 14:45) Diphenhydramine Injection (Benadryl Inje (09/14/22 14:45) Prochlorperazine Injection (Compazine In (09/14/22 14:45) Medications Given in ED Current Medications Medications Dose Ordered Sig/Osei Route Start Time Stop Time Status Last Admin Dose Admin Diphenhydramine HCl 25 mg ONCE ONCE IVP 09/14/22 14:45 09/14/22 14:46 DC 09/14/22 14:57 25 MG Ketorolac Tromethamine 30 mg ONCE ONCE IVP 09/14/22 14:45 09/14/22 14:46 DC 09/14/22 14:57 30 MG Prochlorperazine Edisylate 10 mg ONCE ONCE IV 09/14/22 14:45 09/14/22 14:46 DC 09/14/22 14:58 10 MG Vital Signs/I&O 09/14/22 09/14/22 14:25 16:23 Temp 36.5 Pulse 71 65 Resp 18 B/P (MAP) 147/92 (110) 130/79 Pulse Ox 99 98 O2 Delivery Room Air Room Air Blood Pressure Mean: 110 Departure Communication (PCP) Patient was seen here 2 days ago after a head injury and syncopal episode. She had a negative CT scan of the head and cervical neck. Since then she has had lightheadedness, dizziness unsteady gait sensitive to light, nausea. Has been taken Tylenol at home. She is not currently on any anticoagulants. Denies drinking any alcohol since last week. No vomiting, visual changes, unilateral muscle weakness or sensory changes. She states she does have numbness and tingling right arm but has been there for several months. She has no concerning focal neural deficits. Steady gait. Due to negative CT scan 2 days ago imaging was held. Suspect symptoms are related to a rconcussion at this time. She has no predisposed risk factors that would suggest a intracranial bleed. discussed migraine cocktail at this time. Significant improvement of her symptoms. Suspect symptoms are more result of a concussion. Discussed rest at home. Avoid bright lights, reading for long period of time, any game playing or work until symptoms resolved. Recommend continue monitoring symptoms with primary care physician. Further evaluation may be needed. If any worsening symptoms return back to ED. Discussed anti-inflammatories for head pain at home. Impression Primary Impression: Concussion Disposition: 01 HOME, SELF-CARE Condition: Stable Departure-Patient Inst. Decision time for Depature: 16:07 Referrals: [facility] (PCP/Family) Primary Care Physician Patient Instructions: Concussion, Adult ED Add. Discharge Instructions: Need to rest at home. Avoid bright lights, reading, watching TV for prolonged period time. No games. No work until symptoms improved. Recommend continue monitoring with your primary care physician for further evaluation. Further evaluation for the syncope with your primary. If any worsening symptoms return back to ED for further evaluation. Suspect concussion. All discharge instructions reviewed with patient and/or family. Voiced understanding. DEREK REESE September 14, 2022 14:42
[2022-09-14] MEDS ORDERED: diphenhydrAMINE 50 MG/ML INJ (BENADRYL) IVP ONE (14:45)
[2022-09-14] MEDS ORDERED: PROCHLORPERAZINE 10 MG/2ML INJ (COMPAZINE) IV ONE (14:45)
[2022-09-14] MEDS ORDERED: KETOROLAC 30 MG/ML VIAL IVP ONE (14:45)
[2022-09-14 15:10] LABS: BASOPHILS # (AUTO) 0.1 10^3/uL (0.0-0.1); BASOPHILS % (AUTO) 1 % (0-10); EOSINOPHILS # (AUTO) 0.5 10^3/uL (0.0-0.3); EOSINOPHILS % (AUTO) 5 % (0-10); HEMATOCRIT 38 % (35-52); HEMOGLOBIN 12.7 g/dL (11.5-16.0); LYMPHOCYTES # (AUTO) 3.7 10^3/uL (1.0-4.0); LYMPHOCYTES % (AUTO) 38 % (12-44); MEAN CORPUSCULAR HEMOGLOBIN 29 pg (25-34); MEAN CORPUSCULAR HGB CONC 33 g/dL (32-36); MEAN CORPUSCULAR VOLUME 86 fL (80-99); MEAN PLATELET VOLUME 11.2 fL (9.0-12.2); MONOCYTES # (AUTO) 0.6 10^3/uL (0.0-1.0); MONOCYTES % (AUTO) 6 % (0-12); NEUTROPHILS # (AUTO) 4.8 10^3/uL (1.8-7.8); NEUTROPHILS % (AUTO) 49 % (42-75); PLATELET COUNT 243 10^3/uL (130-400); WHITE BLOOD COUNT 9.8 10^3/uL (4.3-11.0)
[2022-09-14 15:21] LABS: ALBUMIN 4.2 GM/DL (3.2-4.5)
[2022-09-14 15:22] LABS: POTASSIUM 3.8 MMOL/L (3.6-5.0)
[2022-09-14 15:23] LABS: CALCIUM 9.4 MG/DL (8.5-10.1)
[2022-09-14 15:24] LABS: TOTAL PROTEIN 7.1 GM/DL (6.4-8.2)
[2022-09-14 15:26] LABS: BILIRUBIN,TOTAL 0.3 MG/DL (0.1-1.0)
[2022-09-14 15:27] LABS: CREATININE SERUM 0.82 MG/DL (0.60-1.30)
[2022-09-14 16:23] VITALS: BP 130/79
== END 2022-09-14 16:24 | disposition home or self-care (01) ==
LOC: EDUNIT# 14:13 → ER 14:15
DX: S06.0XAA Concussion with loss of consciousness status unknown, initial encounter (principal); R20.2 Paresthesia of skin; R20.0 Anesthesia of skin; F17.210 Nicotine dependence, cigarettes, uncomplicated; F17.290 Nicotine dependence, other tobacco product, uncomplicated; E66.01 Morbid (severe) obesity due to excess calories; Z68.42 Body mass index [BMI] 45.0-49.9, adult; W18.30XA Fall on same level, unspecified, initial encounter; W22.8XXA Striking against or struck by other objects, initial encounter; Y92.002 Bathroom of unspecified non-institutional (private) residence as the place of occurrence of the external cause
CPT/HCPCS: 36415; 80053; 85025

== ENCOUNTER 2023-01-17 04:38 | Emergency (ER) | payer MEDICAID ==
[~2023-01-17] VITALS: Ht 160 cm; Wt 130.0 kg
[2023-01-17 04:45] VITALS: BP 177/109
[2023-01-17] MEDS ORDERED: ONDANSETRON 4 MG ORAL DISSOLVE TABLET PO STA (04:50)
[2023-01-17] MEDS ORDERED: PANT40TA2 PO (04:53)
--- NOTE | 2023-01-17 04:53 | ED General ---
General Chief Complaint: Substance Abuse Stated Complaint: ALCOHOL POISONING Nursing Triage Note: PATIENT STATES DRANK LAST NIGHT STATE APPROX 5 BEERS. STATES VOMITTING. Source of Information: Patient History of Present Illness Date Seen by Provider: Jan 17, 2023 Time Seen by Provider: 04:48 Initial Comments PT ARRIVES VIA POV PT STATES "I HAVE ALCOHOL POISONING" STATES "I DRANK TOO MUCH" SHE HAD 5 BEERS BETWEEN 2200 AND 0030 TODAY. STATES "I STARTED THROWING UP AND I STARTED TO BLACK OUT" STATES SHE "THREW UP DARK STUFF AND THEN WATER" X 1 SHE IS NOT NAUSEATED NOW SHE DID NOT ACTUALLY "PASS OUT" NO ABDOMINAL PAIN NO HEADACHE NO INJURY PT WALKS IN ON HER OWN WITHOUT ANY DIFFICULTY, AND HER SPEECH IS CLEAR AND NOT SLURRED. SHE DOES NOT HAVE ANY SYMPTOMS NOW PT HAS BEEN TO ER ON PRIOR VISITS FOR THIS SAME COMPLAINT SHE STATES SHE DOES NOT DRINK VERY OFTEN. SHE HAS HISTORY OF DAILY ETOH USE SHE DENIES DRUG USE, BUT HAS HISTORY OF DAILY MARIJUANA USE SHE SMOKES AND VAPES NICOTINE Allergies and Home Medications Allergies Coded Allergies: No Known Drug Allergies (Unverified , 12/28/09) Patient Home Medication List Home Medication List Reviewed: Yes Albuterol Sulfate (Albuterol Sulfate) 2.5 Mg/3 Ml (0.083 %) Vial.neb, 2.5 MG INH Q4H Prescribed by: MEHNAZ GALLOWAY on 07/22/221938 Epinephrine (Epipen 2-Vipul) 0.3 Mg/0.3 Ml Auto.injct, 0.3 MG IJ NEEDED Prescribed by: LEONILA CASTILLO on 03/02/22 0835 L. Acidophilus/Pectin, [place] (Acidophilus Capsule) 7.5 Mg (30 Million Cell)-100 Mg Capsule, 2 EACH PO QID Prescribed by: LILIANA WINCHESTER on 09/12/22 0701 Levocetirizine Dihydrochloride (Xyzal) 5 Mg Tablet, 5 MG PO BID Prescribed by: LEONILA CASTILLO on 03/02/22 0835 Nebulizer/Compressor (Innospire Elegance Adam Neb) 1 Each Each, EACH MC DAILY PRN, (DME) Prescribed by: MEHNAZ GALLOWAY on 07/22/221938 Ondansetron (Ondansetron Odt) 4 Mg Tab.rapdis, 4 MG PO TID PRN for NAUSEA/VOMITING-1ST LINE Prescribed by: MEHNAZ GALLOWAY on 10/12/21 1359 Ondansetron (Ondansetron Odt) 4 Mg Tab.rapdis, 4 MG SL Q4H PRN for NAUSE A/VOMITING Prescribed by: JOHN BRISCOE MD on 05/13/22 0014 Ondansetron (Ondansetron Odt) 8 Mg Tab.rapdis, 8 MG PO Q6H Prescribed by: LILIANA WINCHESTER on 09/12/22 0701 Pantoprazole Sodium (Protonix) 40 Mg Tablet.dr, 40 MG PO DAILY Prescribed by: LILIANA WINCHESTER on 01/17/23 0453 Prednisone (Prednisone) 20 Mg Tab, 40 MG PO DAILY Prescribed by: MEHNAZ GALLOWAY on 07/22/22 1939 Promethazine HCl (Promethazine Tablet) 25 Mg Tablet, 25 MG PO Q6H PRN for NAUSEA/VOMITING Prescribed by: RENE CASTELLANO on 06/21/20 0944 Review of Systems Review of Systems Constitutional: no symptoms reported EENTM: double vision Cardiovascular: no symptoms reported Gastrointestinal: see HPI Genitourinary: no symptoms reported Musculoskeletal: no symptoms reported Skin: no symptoms reported Psychiatric/Neurological: No Symptoms Reported Hematologic/Lymphatic: No Symptoms Reported Immunological/Allergic: no symptoms reported Past Syqiwxs-Gaosnx-Kqxyiz Hx Patient Social History Tobacco Use?: Yes Tobacco type used: Cigarettes Smoking Status: Current Everyday Smoker Use of E-Cig and/or Vaping dev: Yes E-Cig or Vaping type used: Nicotine Use of E-Cig and/or Vaping Vince: Current Everyday User Substance use?: Yes Substance type: Marijuana Alcohol Use?: Yes Immunizations Up To Date Tetanus Booster (TDap): Less than 5yrs First/Initial COVID19 Vaccinat: N/A Second COVID19 Vaccination Torito: YES Third COVID19 Vaccination Date: YES Past Medical History Surgery/Hospitalization HX: BI LAT KNEE SCOPE, C SECTION, RT 5TH DIGIT PINNED FROM TRAUMA (NOT IN FINGER NOW) Surgeries: Yes (BILAT KNEE ) Bladder Surgery, Section, Orthopedic Respiratory: No Cardiac: No Neurological: Yes Neuropathy Reproductive Disorders: Yes Female Reproductive Disorders: Polycystic Ovarian Dis Genitourinary: No Gastrointestinal: No Musculoskeletal: Yes (ORTHO SURGERIES) Endocrine: Yes (NOT ON MEDICATIONS FOR DIABETES; MORBID OBESITY) Diabetes, Non-Insulin dep HEENT: No Cancer: No Psychosocial: No Integumentary: No Blood Disorders: No Adverse Reaction/Blood Tranf: No Family Medical History Family history: Cardiovascular disease MATERNAL GRANDMOTHER Family history: Hypertension MATERNAL GRANDMOTHER Infertile Tuberculosis 03 MOTHER No Pertinent Family Hx SOCIAL HISTORY: -SMOKES 1 PPD -ETOH--DAILY USE -DRUGS--DAILY MARIJUANA USE Physical Exam Vital Signs Vital Signs - First Documented 01/17/23 04:45 Temp 36.6 Pulse 83 Resp 20 B/P (MAP) 177/109 (131) Pulse Ox 98 O2 Delivery Room Air Capillary Refill : Less Than 3 Seconds Height, Weight, BMI Height: 5'3" Weight: 240lbs. 5.0oz. 109.427306mn; 50.00 BMI Method:Stated General Appearance: No Apparent Distress, WD/WN, Obese, Other (WALKS AND MOVES QUICKLY WITHOUT DIFFICULTY. SPEECH IS CLEAR. 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 Norm as Tested Skin: Normal Color, Warm/Dry Progress/Results/Core Measures Suspected Sepsis SIRS Temperature: Pulse: 83 Respiratory Rate: 20 Blood Pressure 177 /109 Mean: 131 Results/Orders My Orders Orders - LILIANA WINCHESTER DO Ondansetron Oral Dissolve Tab (Ondanset (01/17/23 04:50) Pantoprazole Tablet (Pantoprazole Tablet (01/17/23 05:00) Medications Given in ED Vital Signs/I&O 01/17/23 04:45 Temp 36.6 Pulse 83 Resp 20 B/P (MAP) 177/109 (131) Pulse Ox 98 O2 Delivery Room Air Capillary Refill : Less Than 3 Seconds Blood Pressure Mean: 131 Progress Note : Progress Note VITALS STABLE PT DOES NOT APPEAR INTOXICATED AT THIS TIME AND SHE IS CURRENTLY NOT HAVING ANY SYMPTOMS REVIEWED PRIOR RECORDS INCLUDING ER VISITS, ADMITS / H&P'S / CONSULTS / DISCHARGE SUMMARIES, TESTS/PROCEDURES Departure Impression Primary Impression: Alcohol abuse Disposition: HOME, SELF-CARE Condition: Stable Departure-Patient Inst. Decision time for Depature: 04:51 Referrals: [facility] (PCP/Family) Primary Care Physician Patient Instructions: ALCOHOL AND SUBSTANCE ABUSE, Alcohol Use Disorder (DC) Add. Discharge Instructions: NO ALCOHOL OR DRUGS CLEAR LIQUIDS--WATER, BROTH, JELLO, GATORADE TOMORROW IF YOU ARE BETTER, ADD BRATS DIET TO CLEAR LIQUIDS--BANANAS, RICE, APPLESAUCE, TOAST, SALTINES FOLLOW UP WITH [facility] IF YOUR SYMPTOMS PERSIST All discharge instructions reviewed with patient and/or family. Voiced understanding. Scripts Pantoprazole Sodium (Protonix) 40 Mg Tablet. 40 MG PO DAILY, #15 TAB Prov: LILIANA WINCHESTER DO 01/17/23 LILIANA WINCHESTER DO Jan 17, 2023 04:53
[2023-01-17] MEDS ORDERED: PANTOPRAZOLE 40 MG TABLET PO ONE (05:00)
== END 2023-01-17 05:12 | disposition home or self-care (01) ==
LOC: EDUNIT# 04:38 → ER 04:40
DX: F10.10 Alcohol abuse, uncomplicated (principal); F17.210 Nicotine dependence, cigarettes, uncomplicated
CPT/HCPCS: 99283